=== PATIENT | female | born 1955 | race Caucasian/White ===

== ENCOUNTER → 2016-06-13 09:36 | Outpatient (CLI) | payer MEDICARE ==
[2013-01-27 19:50] VITALS: BMI 43.6
[~2016-06-13 09:36] MED LIST: ADALAT CC90 MG; BETAPACE 80 MG80 MG; FOLIC ACID1 MG PO; LEVOTHROID150 MCG PO; METHOTREXATE2.5 MG PO; MOTRIN600 MG PO; MULTIPLE VITAMI1 TA1 PO; PERCOCET 5/3251 TA1 PO; PRINIVIL20 MG PO; PROCARDIA XL60 MG PO; VITAMIN D5000 UNIT PO; VOLTAREN75 MG PO; XALATAN 0.0052.5 ML EACH EYE
== END ==
LOC: D.MRI 06-08 14:29
DX: M54.5 Low back pain (principal)

== ENCOUNTER 2016-07-27 14:36 | Emergency (ER) | payer MEDICARE ==
[2013-01-27 19:50] VITALS: BMI 43.6
[2016-07-27 15:56] LABS: APPEARANCE CLOUDY (CLEAR); BILIRUBIN NEGATIVE (NEGATIVE); COLOR YELLOW (YELLOW); GLUCOSE NEGATIVE (NEGATIVE); KETONE NEGATIVE (NEGATIVE); LEUKOCYTE ESTERASE 1+ (NEGATIVE); NITRITE NEGATIVE (NEGATIVE); PROTEIN NEGATIVE (NEGATIVE); SPECIFIC GRAVITY 1.015 (1.005-1.020); UROBILINOGEN NORMAL (NORMAL)
[2016-07-27 15:58] LABS: BACTERIA MANY /hpf (NONE SEEN); RED CELLS - URINE 0-5 /hpf (0-5); WHITE CELLS - URINE 25-50 /hpf (0-5)
[2016-07-27 16:27] LABS: HEMATOCRIT 36.8 % (36.0-48.0); MCH 31.2 pg (26.0-34.0); MCHC 32.6 g/dL (31.0-37.0); MCV 95.6 fL (80.0-100.0); MEAN PLATELET VOLUME 10.2 fL (7.4-10.4); PLATELET COUNT 285 10x3/uL (130-400); RBC 3.85 10x6/uL (4.00-5.40); RDW 16.2 % (11.5-14.5); WBC 22.7 10x3/uL (4.8-10.8)
[2016-07-27 16:44] LABS: ALBUMIN 3.3 g/dL (3.4-5.0); ALKALINE PHOSPHATASE 83 U/L (46-116); ALT (SGPT) 21 U/L (10-68); BILIRUBIN - TOTAL 0.75 mg/dL (0.2-1.3); CALC OSMOLALITY 278 mosm/kg (275-300); CALCIUM 8.6 mg/dL (8.5-10.1); CARBON DIOXIDE 26.5 mmol/L (21.0-32.0); CHLORIDE - SERUM 103 mmol/L (98-107); CREATININE - SERUM 0.7 mg/dL (0.6-1.3); GLUCOSE 123 mg/dL (74-106); POTASSIUM - SERUM 3.3 mmol/L (3.5-5.1); SODIUM 140 mmol/L (136-145); UREA NITROGEN 11 mg/dL (7-18); eGFR NON AFRICAN AMERICAN 90 mL/min (90-120)
[2016-07-27 16:45] LABS: BASOPHILS 1 % (0.0-2.0); LYMPHOCYTES 5 % (15-50); MONOCYTES 1 % (2-11); NEUTROPHILS 90 % (40-80); PLATELET ESTIMATE NORMAL
== END 2016-07-27 18:55 | disposition home or self-care (01) ==
LOC: D.ER 14:36
PROVIDERS: Physician Assistant Medical
DX: S93.402A Sprain of unspecified ligament of left ankle, initial encounter (principal); W01.0XXA Fall on same level from slipping, tripping and stumbling without subsequent striking against object, initial encounter; Y93.89 Activity, other specified; Y92.019 Unspecified place in single-family (private) house as the place of occurrence of the external cause; S80.02XA Contusion of left knee, initial encounter; S70.01XA Contusion of right hip, initial encounter; N39.0 Urinary tract infection, site not specified; I10 Essential (primary) hypertension; M06.9 Rheumatoid arthritis, unspecified

== ENCOUNTER → 2018-07-09 16:55 | Outpatient (CLI) | payer MEDICARE ==
[2013-01-27 19:50] VITALS: BMI 43.6
[2018-07-09 18:03] LABS: CALC OSMOLALITY 283 mosm/kg (275-300); CALCIUM 9.3 mg/dL (8.5-10.1); CARBON DIOXIDE 27.7 mmol/L (21.0-32.0); CHLORIDE - SERUM 104 mmol/L (98-107); CREATININE - SERUM 0.7 mg/dL (0.6-1.3); GLUCOSE 98 mg/dL (74-106); POTASSIUM - SERUM 4.4 mmol/L (3.5-5.1); SODIUM 141 mmol/L (136-145); UREA NITROGEN 21 mg/dL (7-18); eGFR NON AFRICAN AMERICAN 89 mL/min (90-120)
== END | disposition home or self-care (01) ==
LOC: D.LABREF 16:55
PROVIDERS: Nurse Practitioner
DX: I10 Essential (primary) hypertension (principal); I25.10 Atherosclerotic heart disease of native coronary artery without angina pectoris

== ENCOUNTER 2018-10-26 06:23 | Observation (INO) | payer MEDICARE ==
[~2018-10-26] VITALS: Ht 160 cm; Wt 118.9 kg
[2018-10-26] VITALS (7 sets, daily range): BP systolic 105–155; BP diastolic 61–92; Ht 160 cm; Wt 118.9 kg
--- NOTE | ~2018-10-26 | HEMODYNAMI ---
PATIENT:TORY ELIZABETH MEDICAL RECORD: [id number] : 53 LOCATION:[address] [id number] ADMISSION DATE: 10/26/18 Generatedon:10/27/201812:09 Patient name: TORY ELIZABETH Patient #: [id number] SSN: : 1955 Date of study: 10/27/2018 Page: Of Hemodynamic Procedure Report Patient Data Patient Demographics Procedure consent was obtained First Name: TORY Gender: Female Last Name: CLARA : 1955 [facility] Initial: YAMILEX Age: 63 year(s) Patient #: [id number] Race: Unknown Additional ID: [id number] Contact details Address: [address] [address] State: [place] City: [place] Zip code: [address] Past Medical History Allergies: No known allergies Admission Admission Data Admission Date: 10/26/2018 Admission Time: 7:47 Room #: D2130 Lab Results Lab Result Date: 10/27/2018 Lab Result Time: 0:00 Biochemistry Name Units Result Min Max BUN mg/dl 23 --(----)-* 7 18 Creatinine mg/dl 0.7 --(*---)-- 0.6 1.3 CBC Name Units Result Min Max Hematocrit % 33.8 *-(----)-- 42 54 Hemoglobin g/dl 11.2 *-(----)-- 13.5 17.5 Procedure Procedure Types Cath Procedure Diagnostic Procedure C C w/Coronaries Procedure Description Procedure Date Procedure Date: 10/27/2018 Procedure Start Time: 11:58 Procedure End Time: 12:08 Procedure Staff Name Function Asher Llamas MD Performing Physician Tyrone Agrawal RT Monitor Waylon Mccarty RN Nurse Kate Harrison RT Scrub Procedure Data Cath Procedure Fluoroscopy Diagnostic fluoroscopy Total fluoroscopy Time: 1.5 time: 1.5 min min Diagnostic fluoroscopy Total fluoroscopy dose: 565 dose: 565 mGy mGy Contrast Material Contrast Material Type Amount (ml) Isovue 300 54 Entry Location Entry Primary Successful Side Size Upsize Upsize Entry Closure Lau ccessful Closure Location (Fr) 1 (Fr) 2 (Fr) Remarks Device Remarks Radial Right 6 Fr Mechanical artery Short Compression Estimated blood loss: 5 ml Diagnostic catheters Device Type Used For End Catheter Placement DIAGNOSTIC [place] 110cm 5 Procedure Fr catheter ([id number]) DIAGNOSTIC Pigtail 5Fr Procedure catheter ([id number]) Procedure Complications No complications Procedure Medications Medication Administration Route Dosage 0.9% NaCl I.V. 100 ml/hr Oxygen etCO2 Nasal cannula 2 l/min Heparin Flush Bag added to field 2 bags (1000units/500ml NS) Lidocaine 2% added to field 20 Radial Cocktail added to field 1 syringe (Verapamil 2mg/Nitro 400mcg/Heparin 1500units) Versed I.V. Fentanyl I.V. 100 mcg Radial Cocktail I.A. 1 syringe (Verapamil 2mg/Nitro 400mcg/Heparin 1500units) Hemodynamics Rest HGB: 11.2 (g/dl) Heart Rate: 56 (bpm) Pressure Samples Time Site Value (mmHg) Purpose Heart Use Rate(bpm) 12:04 LV 170/15,22 EDP 33 Gradients Valve Time Site Site Mean SEP/DFP Peak To Heart Use 1 2 (mmHg) (sec/min) Peak Rate (mmHg) (bpm) Aortic 12:04 LV AO 58 Snapshots Pre Cath Intra NCS Post Cath Vital Signs Time Heart Resp SPO2 etCO2 NIBP (mmHg) Rhythm Pain Sedation Rate (ipm) (%) (mmHg) Status Level (bpm) 11:44:08 59 22 100 36.5 170/91(149) NSR 0 (11) 10(A) , No pain 11:48:28 55 16 100 38.7 152/83(134) NSR 0 (11) 10(A) , No pain 11:52:50 55 11 98 41 149/74(123) NSR 0 (11) 10(A) , No pain 11:56:52 56 18 95 40.3 118/71(107) NSR 0 (11) 10(A) , No pain 12:01:02 56 16 96 34.3 122/73(106) NSR 0 (11) 10(A) , No pain 12:05:12 61 11 96 40.2 139/75(113) NSR 0 (11) 10(A) , No pain Medications Time Medication Route Dose Verified Delivered Reason Notes Effectiveness by by 11:46:10 0.9% NaCl I.V. 100 Waylon Waylon Per ml/hr Bibiana Mccarty physician RN RN 11:46:47 Oxygen etCO2 2 l/min Waylon Waylon for low 02 Nasal Lorigan Lorigan sats cannula RN RN 11:46:59 Heparin Flush added 2 bags Waylon Waylon used for Bag to Lorigan Lorigan procedure (1000units/500ml field RN RN NS) 11:47:10 Lidocaine 2% added 20ml Waylon Waylon for local to vial Lorigan Lorigan anesthetic field RN RN 11:47:19 Radial Cocktail added 1 Waylon Waylon used for (Verapamil to syringe Lorigan Lorigan procedure 2mg/Nitro field CEBALLOS RN 400mcg/Heparin 1500units) 11:53:51 Versed I.V. Waylon Waylon for sedation Bibiana Mccarty RN, RN 11:53:59 Fentanyl I.V. 100 mcg Waylon Waylon for sedation Bibiana Mccarty RN, RN 11:59:35 Radial Cocktail I.A. 1 Waylon Asher for (Verapamil syringe Lorigan Muriel vasodilation 2mg/Nitro TUCKER SHAH 400mcg/Heparin 1500units) Procedure Log Time Note 11:25:55 Waylon Mccarty RN sent for patient. Start room use. 11:25:56 Time tracking: Regular hours (M-F 7:00 - 5:00) 11:26:00 Plan of Care:Hemodynamics will remain stable., Cardiac rhythm will remain stable., Comfort level will be maintained., Respiratory function will remain adequate., Patient/ family verbilizes understanding of procedure., Procedure tolerated without complication., Recovers from procedure without complications.. 11:34:27 Patient received from Med II to CCL 1 Alert and oriented. Tansferred to table in Supine position. 11:34:28 Warm blankets applied, and abdullahi hugger turned on for patient comfort. 11:34:29 Correct patient and procedure confirmed by team. 11:34:30 Signed procedure consent form obtained from patient. 11:34:31 ECG and BP/O2 sat monitors applied to patient. 11:34:32 Pre-procedure instructions explained to patient. 11:34:32 Pre-op teaching completed and patient verbalized understanding. 11:42:53 Vital chart was started 11:46:10 0.9% NaCl 100 ml/hr I.V. was administered by Waylon Mccarty RN; Per physician; 11:46:47 Baseline sample Acquired. 11:46:47 Oxygen 2 l/min etCO2 Nasal cannula was administered by Waylon Mccarty RN; for low 02 sats; 11:46:50 Rhythm: sinus rhythm 11:46:52 Full Disclosure recording started 11:46:58 H&P Date Dictated: 10/26/2018 Within 30 days and on chart.. 11:46:59 Heparin Flush Bag (1000units/500ml NS) 2 bags added to field was administered by Waylon Mccarty RN; used for procedure; 11:47:00 Family in patients room. 11:47:01 Patient NPO since Midnight. 11:47:07 Patient allergic to No known allergies 11:47:08 Is the patient allergic to Iodine/contrast media? No. 11:47:10 Lidocaine 2% 20ml vial added to field was administered by Waylon Mccarty RN; for local anesthetic; 11:47:19 Radial Cocktail (Verapamil 2mg/Nitro 400mcg/Heparin 1500units) 1 syringe added to field was administered by Waylon Mccarty RN; used for procedure; 11:51:27 Is patient on blood thinner?No 11:51:29 Patient diabetic? No. 11:51:31 Previous problem with sedation/anesthesia? No ? 11:51:33 Snore? Yes 11:51:34 Sleep apnea? Yes 11:51:35 Deviated septum? No 11:51:35 Opens mouth fully? Yes 11:51:36 Sticks out tongue? Yes 11:51:42 Dentures? Yes in 11:51:46 Pre procedure: right dorsailis pedis pulse 1+ Palpable, but thready & weak; easily obliterated 11:51:48 Modified Raj's test Ulnar < 7 seconds 11:51:50 Patient pain scale 0/10 ?. 11:51:53 IV patent on arrival in right antecubital with 0.9% NaCl at [facility]. 11:52:55 Lab Result : BUN 23 mg/dl 11::55 Lab Result : Hemoglobin 11.2 g/dl 11::55 Lab Result : Creatinine 0.7 mg/dl 11::55 Lab Result : Hematocrit 33.8 % 11:52:57 Lab results completed and on chart. 11:53:00 Right Radial & Right Groin area was prepped with chlora-prep and draped in sterile fashion 11:53:01 Alarms reviewed by R. N. 11:53:01 Sharps counted by scrub and verified by R.N. 11:53:03 Use device set Radial Dx or PCI 11:53:04 ACIST Syringe (79241) opened to sterile field. 11:53:04 Medline Cath Pack ([id number]) opened to sterile field. 11:53:05 Bag Decanter (2002S) opened to sterile field. 11:53:07 ACIST Hand Control (09795) opened to sterile field. 11:53:08 ACIST Manifold (15356) opened to sterile field. 11:53:08 Tegaderm 4 x 4 (1626W) opened to sterile field. 11:53:08 MBrace Wrist Support ([id number]) opened to sterile field. 11:53:10 SHEATH 6FR Slender (72-1060) opened to sterile field. 11:53:10 DIAGNOSTIC WIRE .035 260cm J wire (966160) opened to sterile field. 11:53:16 Physician arrived 11:53:16 --------ALL STOP TIME OUT------ 11:53:17 Final Timeout: patient, procedure, and site verified with staff and physician. All members of the team are in agreement. 11:53:18 Right Radial & Right Groin site verified by team. 11:53:20 Maximum allowable Isovue 300 dose 300ml. Physician notified. (300ml for normal creatinines. For patients with creatinine of 1.7 or higher multiply weight(kg) x 5 divided by creatinine.) 11:53:24 Fire Safety Assessment: A--An alcohol-based skin anteseptic being used preoperatively., C--Open oxygen or nitrous oxide is being used., D--An ESU, laser, or fiber-optic light is being used. 11:53:26 Physical assessment completed. ASA score P 2 - A patient with mild systemic disease as per Asher Llamas MD. 11:53:28 Sedation plan: IV Moderate Sedation Medication:Versed, Fentanyl 11:53:51 Versed I.V. was administered by Waylon Mccarty RN; for sedation; 11:53:59 Fentanyl 100 mcg I.V. was administered by Waylon Mccarty RN; for sedation; 11:57:49 Zero performed for pressure channel P1 11:57:53 Zero performed for pressure channel P1 11:57:57 Zero performed for pressure channel P1 11:57:59 Zero performed for pressure channel P1 11:58:06 Procedure started. 11:58:10 Local anesthetic to right radial artery with Lidocaine 2% by Asher Llamas MD.INITIAL ACCESS ONLY 11:58:19 A 6 Fr Short sheath was inserted into the Right Radial artery 11:59:35 Radial Cocktail (Verapamil 2mg/Nitro 400mcg/Heparin 1500units) 1 syringe I.A. was administered by Asher Llamas MD; for vasodilation; :59:59 A DIAGNOSTIC [place] 110cm 5 Fr catheter (449254) was advanced over the wire and used for Procedure. 12:00:18 LCA angiography performed. 12:01:19 RCA angiography performed. 12:02:30 Catheter exchanged over wire. 12:02:53 A DIAGNOSTIC Pigtail 5Fr catheter (134228Y) was advanced over the wire and used for Procedure. 12:04:12 LV gram done using MANZO 12:04:15 Injector settings: Ml/sec: 10, Volume: 20, 12:04:38 LV hemodynamics recorded. 12:04:42 EF : 55 % 12:04:43 Catheter removed. 12:04:52 TR BAND Standard (HRT27MSO) opened to sterile field. 12:04:58 Sheath removed intact; hemostasis achieved with Mechanical Compression to the Right Radial artery. 12:04:59 Procedure ended.(Physican Out) 12:06:54 Fluoroscopy time 01.50 minutes. 12:06:59 Fluoroscopy dose: 565 mGy 12:06:59 Flurop Dose total: 565 12:07:03 Contrast amount:Isovue 300 54ml. 12:07:05 Sharps counted by scrub and verified by R.N. 12:07:07 TR band inflated with 11cc of air. 12:07:09 Insertion/operative site no bleeding no hematoma. 12:07:18 Post right radial artery:stable, soft, clean and dry 12:07:19 Post Procedure Pulses reassessed and unchanged 12:07:21 Post-procedure physical assessment completed. ASA score P 2 - A patient with mild systemic disease as per Asher Llamas MD. 12:07:23 Post procedure rhythm: unchanged. 12:07:40 Estimated blood loss: 5 ml 12:07:41 Post procedure instruction explained to patient.Patient verbalizes understanding. 12:07:42 Patient needs reinforcement of post procedure teaching. 12:08:32 Procedure and supply charges have been captured, reviewed, submitted and are correct. 12:08:36 Procedure Complication : No complications 12:08:38 Vital chart was stopped 12:08:38 See physician's report for complete and final results. 12:08:40 Report given to PCU. 12:08:42 Patient transfered to PCU with Stretcher. 12:08:44 Procedure ended. 12:08:44 Full Disclosure recording stopped 12:08:49 End room use (Document Last) Device Usage Item Name Manufacture Quantity Catalog Hospital Part Current Minimal Lot# / Number Charge Number Stock Stock Serial# Code ACIST Acist 1 95383 309695 790062 514582 20 Syringe Medical (84324) Systems Inc Medline Medline 1 [id number] 879910 66917 227574 5 Cath Pack ([id number]) Bag Microtek 1 2001S 063095 91477 867338 5 Decanter Medical Inc. (2001S) ACIST Hand Acist 1 97289 078409 951159 140931 5 Control Medical (52678) Systems Inc ACIST Acist 1 67310 012454 775125 472977 5 Manifold Medical (68325) Systems Inc Tegaderm 4 3M 1 1626W 400473 536602 821299 5 x 4 (1626W) MBrace Advanced 1 140-0250-00 136226 86674 762660 5 Wrist Vascular Support Dynamics ([id number]) SHEATH 6FR Terumo 1 [id number] 535207 906582 493715 5 Slender (80-1060) DIAGNOSTIC [place] 1 240017 337223 247374 043608 30 WIRE .035 260cm J wire (038579) DIAGNOSTIC Terumo 1 40-7126 944839 989213 552429 5 [place] 110cm 5 Fr catheter (316228) DIAGNOSTIC Cardinal 1 [id number] 794789 581590 035879 5 Pigtail 5Fr Health catheter (589664Y) TR BAND Terumo 1 [id number] 372948 840290 521385 40 Standard ([id number]) Signature Audit [place] Stage Time Signature Unsigned Intra-Procedure 10/27/2018 Tyrone Agrawal 12:09:09 PM RT(R) Signatures Monitor : Tyrone Agrawal RT Signature : Date : Time : [address] [place] [address]
[2018-10-26] MEDS ORDERED: NORVASC10 MG PO (06:36)
[2018-10-26 07:06] LABS: BASOPHILS 0.4 % (0-2); EOSINOPHILS 0.6 % (0-7); HEMATOCRIT 36.8 % (36.0-48.0); HEMOGLOBIN 12.4 g/dL (12-16); IMMATURE GRANULOCYTES 0.4 % (0-5); LYMPHOCYTES 32.4 % (15-50); MCH 31.2 pg (26.0-34.0); MCHC 33.7 g/dL (31.0-37.0); MCV 92.7 fL (80.0-100.0); MEAN PLATELET VOLUME 9.5 fL (7.4-10.4); MONOCYTES 8.3 % (2-11); NEUTROPHILS 57.9 % (40-80); PLATELET COUNT 306 10x3/uL (130-400); RBC 3.97 10x6/uL (4.00-5.40); RDW 16.1 % (11.5-14.5); WBC 12.8 10x3/uL (4.8-10.8)
--- NOTE | 2018-10-26 07:14 | NUR ---
PT UP TO RESTROOM, BACK TO BED WITHOUT INCODENT. PLACE BACK ON HOME HEALTH NURSE LICENSED PRACTICAL. BLOOD PRESSURE 155/92.
[2018-10-26 07:22] LABS: ALBUMIN 3.4 g/dL (3.4-5.0); ALKALINE PHOSPHATASE 68 U/L (46-116); ALT (SGPT) 32 U/L (10-68); BILIRUBIN - TOTAL 0.25 mg/dL (0.2-1.3); CALC OSMOLALITY 286 mosm/kg (275-300); CALCIUM 9.3 mg/dL (8.5-10.1); CARBON DIOXIDE 27.5 mmol/L (21.0-32.0); CHLORIDE - SERUM 102 mmol/L (98-107); CREATININE - SERUM 0.8 mg/dL (0.6-1.3); GLUCOSE 132 mg/dL (74-106); POTASSIUM - SERUM 3.7 mmol/L (3.5-5.1); PROTEIN - SERUM 7.8 g/dL (6.4-8.2); SODIUM 139 mmol/L (136-145); UREA NITROGEN 32 mg/dL (7-18); eGFR NON AFRICAN AMERICAN 76 mL/min (90-120)
[2018-10-26 07:31] LABS: CREATINE KINASE 93 UL (21-215); MAGNESIUM - SERUM 1.5 mg/dL (1.8-2.4); PRO BNP 997 pg/mL (0-125); TROPONIN-I 0.024 ng/mL (0.000-0.060)
--- NOTE | 2018-10-26 08:45 | NUR ---
NEW PATIENT ADMIT FROM ER. PATIENT TO ROOM VIA WC AND ER PERSONNEL. PATIENT CHANGED INTO HOSPITAL GOWN AND LAYING IN BED. TELEMETRY PLACED. ADMISSION HISTORY AND ASSESSMENT COMPLETED. PATIENT IS STABLE AND VSS. DENIES ANY NEEDS OR PAIN. ORIENTED TO ROOM AND CALL LIGHT. WILL CONTINUE WITH PLAN OF CARE. SR UP X 2 BED IN LOW POSITION AND CALL LIGHT IN REACH.
[2018-10-26 12:20] LABS: CKMB 2.2 U/L (0.0-3.6); CREATINE KINASE 85 UL (21-215); TROPONIN-I 0.039 ng/mL (0.000-0.060)
[2018-10-26 14:34] LABS: APPEARANCE CLEAR (CLEAR); BILIRUBIN NEGATIVE (NEGATIVE); COLOR STRAW (YELLOW); GLUCOSE NEGATIVE (NEGATIVE); KETONE NEGATIVE (NEGATIVE); NITRITE NEGATIVE (NEGATIVE); PROTEIN NEGATIVE (NEGATIVE); SPECIFIC GRAVITY 1.005 (1.005-1.020); UROBILINOGEN NORMAL (NORMAL)
--- NOTE | 2018-10-26 16:21 | NUR ---
PATIENT LAYING IN BED ON RT SIDE WITH EYES CLOSED AND BREATHING EVENLY. WILL CONTINUE TO MONITOR.
--- NOTE | 2018-10-26 19:25 | NUR ---
RECEIVED REPORT, WILL ASSUME CARE OF PT, SITTING UP ON SIDE OF, DENIES ANY NEEDS, CALL LIGHT IN REACH, WILL CONTINUE PLAN OF CARE
[2018-10-26 19:52] LABS: CREATINE KINASE 82 UL (21-215); TROPONIN-I 0.017 ng/mL (0.000-0.060)
[2018-10-27 00:35] VITALS: BP 107/56
--- NOTE | 2018-10-27 00:44 | NUR ---
I have reviewed this patient and I concur with the Shift Assessment completed by the Licensed Practical Nurse today this shift.
--- NOTE | 2018-10-27 02:00 | NUR ---
FIRE MANAGEMENT OFFICER INFORMED ME THAT PT CONVERTED TO SB-57
[2018-10-27 03:53] VITALS: BP 129/65
[2018-10-27 08:00] VITALS: BP 144/70
--- NOTE | 2018-10-27 08:00 | NUR ---
PT RESTING IN BED. SHIFT ASSESSMENT PERFORMED. AM MEDICATIONS GIVEN ORDERED. DENIES ANY PAIN AT THIS TIME. CALL LIGHT WITHIN REACH. WILL CONT TO FOLLOW POC
[2018-10-27 08:08] LABS: BASOPHILS 0.3 % (0-2); EOSINOPHILS 2.3 % (0-7); HEMATOCRIT 33.8 % (36.0-48.0); HEMOGLOBIN 11.2 g/dL (12-16); IMMATURE GRANULOCYTES 0.2 % (0-5); LYMPHOCYTES 24.6 % (15-50); MCH 30.9 pg (26.0-34.0); MCHC 33.1 g/dL (31.0-37.0); MCV 93.1 fL (80.0-100.0); MEAN PLATELET VOLUME 9.6 fL (7.4-10.4); MONOCYTES 6.4 % (2-11); NEUTROPHILS 66.2 % (40-80); PLATELET COUNT 298 10x3/uL (130-400); RBC 3.63 10x6/uL (4.00-5.40); RDW 16.2 % (11.5-14.5); WBC 10.7 10x3/uL (4.8-10.8)
[2018-10-27 08:21] LABS: CALC OSMOLALITY 282 mosm/kg (275-300); CALCIUM 8.7 mg/dL (8.5-10.1); CARBON DIOXIDE 27.5 mmol/L (21.0-32.0); CHLORIDE - SERUM 104 mmol/L (98-107); CREATININE - SERUM 0.7 mg/dL (0.6-1.3); GLUCOSE 104 mg/dL (74-106); POTASSIUM - SERUM 3.9 mmol/L (3.5-5.1); SODIUM 140 mmol/L (136-145); eGFR NON AFRICAN AMERICAN 89 mL/min (90-120)
[2018-10-27 08:26] LABS: UREA NITROGEN 23 mg/dL (7-18)
--- NOTE | 2018-10-27 08:40 | NUR ---
GIS INSTRUCTOR AND BLOOD CONSENTS SIGNED WITH WITNESS NURSE, ALL QUESTIONS ANSWERED.
--- NOTE | 2018-10-27 09:25 | NUR ---
EMBOSSING PRESS OPERATOR CALLED TO PREOP PT. PT PREOP ORDERED
--- NOTE | 2018-10-27 11:32 | NUR ---
PT LEFT FLOOR FOR HEART CATH
--- NOTE | 2018-10-27 12:28 | NUR ---
PT RETURNED FROM IMPLEMENTATION COORDINATOR, VSS AND WNL. TR BAND IN PLACE TO RIGHT WRIST. DENIES ANY NEEDS AT THIS TIME, WILL CONT TO FOLLOW POC
--- NOTE | 2018-10-27 12:45 | NUR ---
PT RESTING IN BED, VSS AND WNL. TR BAND NOTED TO RIGHT WRIST. DENIES ANY NEEDS AT THIS TIME, WILL CONT TO FOLLOW POC
--- NOTE | 2018-10-27 12:54 | NUR ---
PT RESTING IN BED, VSS AND WNL. TR BAND IN PLACE TO RIGHT WRIST. DENIES ANY NEEDS AT THIS TIME
--- NOTE | 2018-10-27 13:45 | NUR ---
VSS AND WNL. DENIES NEEDS AT THIS TIME. TR BAND IN PLACE TO RIGHT WRIST. WILL CONT TO FOLLOW POC
--- NOTE | 2018-10-27 14:15 | NUR ---
VSS AND WNL, DENIES ANY NEEDS AT THIS TIME, TR BAND IN PLACE TO PT RIGHT WRIST. WILL CONT TO FOLLOW POC
[2018-10-27] MEDS ORDERED: ASPIRIN81 MG PO (14:36)
[2018-10-27] MEDS ORDERED: ISOSORBIDE MONO30 M1 PO (14:38)
--- NOTE | 2018-10-27 14:45 | NUR ---
ATTEMPTED TO REMOVE HALF THE AIR IN TR BAND. BLEEDING OCCURED. REPLACED AIR BACK IN TR BAND
--- NOTE | 2018-10-27 15:08 | NUR ---
REMOVED 5CC OF AIR FROM TR BAND. NO BLEEDING NOTED AT THIS TIME, WILL CONT TO FOLLOW POC
--- NOTE | 2018-10-27 16:57 | NUR ---
DISCHARGE INSTRUCTIONS REVIEWED WITH PT AND ALL QUESTIONS ANSWERED, TELELMETRY REMOVED AND GIVEN TO CLINICAL PROGRAM CONSULTANT. PIV REMOVED WITH CATHETER TIP INTACT. ASSISTED PT TO FRONT OF HOSPITAL VIA WHEELCHAIR. PT LEFT WITH FRIEND
--- NOTE | 2018-10-28 09:31 | MORECARE ---
CASE MANAGEMENT DISCHARGE SUMMARY PATIENT: TORY ELIZABETH YAMILEX UNIT: [id number] ADM DATE: 10/26/18 AGE: 63 : [birth year] SEX: F ROOM/BED: D.2130 AUTHOR: ELZBIETA CROCKER PHYSICIAN: REFERRING PHYSICIAN: HAIM WEAVER MD DATE OF SERVICE: 10/28/18 Discharge Plan Patient Name: TORY ELIZABETH Facility: [facility]:[place] : 1955 Planned Disposition: Home Anticipated Discharge Date: 10/27/18 Discharge Date: 10/27/2018 Expected LOS: 1 Initial Reviewer: [id number] Initial Review Date: 10/28/2018 Generated: 10/28/18 10:31 am Patient Name: TORY ELIZABETH Page 24005 at 0931 All edits/amendments must be made on the electronic document DICTATION DATE: 10/28/18929 CASHIER GAMBLING: DM 10/28/18929 RPT#: [id number] DC DATE:10/27/18 STATUS: DIS IN [facility] [address] [place] [address] END OF REPORT
--- NOTE | 2018-10-28 10:07 | CN ---
PATIENT NAME:TORY ELIZABETH MEDICAL RECORD: [id number] : 53 LOCATION:D.Zane D.2130 ADMIT DATE: 10/26/18 ACCOUNT: [id number] CONSULTING PHYSICIAN: BRADLEY ZEE MD REFERRING PHYSICIAN: HAIM WEAVER MD DATE OF CONSULTATION: 10/26/2018 HISTORY OF PRESENT ILLNESS: A 63-year-old female with known history of coronary artery disease, status post intervention to the right in the past, history of atrial fibrillation, actually doing better the last week, she was started on a Dosepak for rheumatoid arthritis, had acute onset of breathlessness, chest tightness and pressure, found to be in AFib with RVR. Secondary ST-T changes. She has noticed some breathlessness since trying to do more over the past week. We are asked to see her concerning her cardiovascular status. PAST MEDICAL HISTORY: Includes: 1. History of arthritis. 2. Hypertension. 3. Hyperlipidemia. 4. Atrial fibrillation. 5. Hypothyroidism, on replacement. MEDICATIONS: Include Synthroid 150 mcg every day, Voltaren 75 b.i.d., sotalol 120 b.i.d., lisinopril 20 b.i.d., felodipine 10 every day, methotrexate 15 mg weekly. ALLERGIES: None known. SOCIAL HISTORY: Nonsmoker, nondrinker. Does try to do PT on a regular basis. REVIEW OF SYSTEMS: The patient reports easy bruising but reports no swollen glands. The patient reports no fever, no night sweats, no significant weight gain, no significant weight loss. No significant exercise tolerance. The patient reports no dry eyes, no irritation, no vision change. Patient reports no difficulty hearing and no ear pain. Patient reports no frequent nose bleeds or nose and sinus problems. Patient reports on arm pain on exertion. No shortness of breath while lying down. No history of heart murmur. Patient reports no cough, no wheezing or coughing up blood. Patient reports no abdominal pain, no vomiting. Normal appetite. No diarrhea and not vomiting blood. No nausea and no constipation. Patient reports no incontinence. No difficulty urinating. No hematuria. No increased frequency. Patient reports no muscle aches. No weakness, no arthralgias, no back pain. No swelling of the extremities. Patient reports no abnormal mole, no jaundice, no rashes. Reports no loss of consciousness. No weakness and no numbness. No seizures, dizziness, or headaches. The patient reports no depression, no sleep disturbance, feeling safe in a relationship and no alcohol abuse. Patient reports on fatigue. Reports no runny nose or sinus pressure. No itching, no hives, and no frequent sneezing. PHYSICAL EXAMINATION: GENERAL: Pleasant female in no acute distress, appears stated age. VITAL SIGNS: Blood pressure 116/61, pulse 82 at this point, still regular. HEENT: Normocephalic, atraumatic. NECK: No bruits noted. HEART: Irregular, II/ systolic ejection murmur, questionable S3 gallop. CONSULT REPORT [id number] TORY ELIZABETH LUNGS: Fair air excursion. ABDOMEN: Soft, nontender. EXTREMITIES: Pulses 2+ with 1+ edema. DIAGNOSTIC DATA: ECG shows atrial fibrillation with RVR, ST-T segment changes inferolaterally. IMPRESSION: Atrial fibrillation, acute coronary syndrome. Plan for rate control. Hopefully, cardiovert with IV diltiazem. Plan for angiography. Further recommendations based on above. TRANSINT:[id number] Voice Confirmation ID: [id number] DOCUMENT ID: [id number] BRADLEY ZEE MD at 1007 CC: [id number] DICTATION DATE: 10/26/18 1102 AIRCRAFT SHIPPING CHECKER: 10/26/18 1350 DIS IN 10/27/18 [facility] [address] [place] [address]
--- NOTE | 2018-10-28 10:07 | EC ---
PATIENT:TORY ELIZABETH DATE OF SERVICE: 10/26/18 SEX: F MEDICAL RECORD: [id number] DATE OF : 53 LOCATION:D.M2 D.213 AGE OF PATIENT: 63 ADMISSION DATE: 10/26/18 REFERRING PHYSICIAN: INTERPRETING PHYSICIAN: BRADLEY ZEE MD ECHOCARDIOGRAM REPORT ECHO CHARGES 4 ECHO COMPLETE Date: 10/26/18 CLINICAL DIAGNOSIS: AFIB ECHOCARDIOGRAPHIC MEASUREMENTS (adult normal given) AC root (d.<3.7cm) 3.3 cm LV Septum d (<1.2 cm> 1.4 cm Valve Excursion 1.3 cm LV Septum (systole) 1.7 cm Left Atria (s.<4.0cm> 3.6 cm LVPW d(<1.2cm) 1.7 cm RV (d.<2.3cm) 4.2 cm LVPW (sytole) 1.9 cm LV diastole(<5.6CM) 5.4 cm MV E-F(>70mm/sec) cm LV systole 3.8 cm LVOT Diameter 1.7 cm MV exc.(>10mm) 1.5 cm Est.ejection fraction (50-75%) % DOPPLER: LVIT cm/sec A cm/sec E cm/sec LA cm/sec RVSP 34 mmHg LVOT 140 cm/sec AOP1/2T m/s Asc. Ao 234 cm/sec RVOT 94 cm/sec RA cm/sec PA 120 cm/sec AV Gradient Peak 21.84mmHg AV Mean 13.26mmHg AV Area 1.4 cm MV Gradient Peak 6.63 mmHg MV Mean 2.41 mmHg MV Area cm COMMENTS: [employer] [employer] Custodian: 2 [employer] Administrator: 3 Dr. Glover TAPE# PACS Pericardial Effusion N DATE OF SERVICE: Adequate 2-D echo, color-flow and spectral Doppler, and M-mode. LVH is present. LV internal dimensions are normal. Difficult to fully assess focal wall motion secondary to underlying atrial fibrillation and variable R-R intervals. Overall LV function appears to be at least lower limits of normal at 50%. Aortic valve sclerosis with mildly elevated velocity of 21 mmHg, putting this in mild range. Left atrium is normal. Mitral valve shows no prolapse. Moderate MR. Right-sided chambers are grossly normal. Mild TR by color-flow ECHOCARDIOGRAM REPORT [id number] TORY ELIZABETH imaging. TRANSINT:[id number] Voice Confirmation ID: [id number] DOCUMENT ID: [id number] BRADLEY ZEE MD at 1007 CC: [id number] DICTATION DATE: 10/27/18 1005 WOOD SCRAP HANDLER: 10/27/18 1705 DIS IN 10/27/18 [place] [id number] [place] [id number]
--- NOTE | 2018-10-28 10:07 | OP ---
PATIENT NAME: TORY ELIZABETH MEDICAL RECORD: [id number] :53 LOCATION:D.M2 D.2130 ADMISSION DATE:10/26/18 SURGEON: BRADLEY ZEE MD DATE OF OPERATION: 10/27/2018 PROCEDURES: Left heart catheterization, selective coronary angiography, right radial approach. CATHETERS: Radial sheath, Linden catheter, pigtail catheter. The procedure was well tolerated. The patient was returned to the law. Sheath was removed. TR band was placed. FINDINGS: Left ventriculography in 30-degree MANZO view: Normal wall motion and normal systolic function. CORONARY ANATOMY: LEFT MAIN: Left main is free of disease. LAD: It has minimal luminal plaquing. No evidence of obstructive coronary artery disease. CIRCUMFLEX: The distal circumflex has a lesion, not amenable to transcatheter revascularization. RIGHT CORONARY ARTERY: Area of previous stenting is widely patent. Otherwise, no evidence of progression of disease. IMPRESSION: Angina secondary to atrial fibrillation, currently in sinus rhythm. Medical management. TRANSINT:[id number] Voice Confirmation ID: [id number] DOCUMENT ID: [id number] BRADLEY ZEE MD at 1007 CC: [id number] DICTATION DATE: 10/27/18 1209 BEDSPREAD CUTTER HAND: 10/27/18 1841 DIS IN 10/27/18 [facility] [address] [place] [address]
== END 2018-10-27 16:59 | disposition home or self-care (01) ==
LOC: D.ER 06:23 → OBSVTIME 07:47 → D.M2 07:47
PROVIDERS: Emergency Medicine; ADMIT Emergency Medicine; ATTEND Emergency Medicine
DX: I48.91 Unspecified atrial fibrillation (principal); I11.0 Hypertensive heart disease with heart failure; E78.5 Hyperlipidemia, unspecified; I25.119 Atherosclerotic heart disease of native coronary artery with unspecified angina pectoris; E03.9 Hypothyroidism, unspecified; I24.9 Acute ischemic heart disease, unspecified; I50.9 Heart failure, unspecified

== ENCOUNTER 2019-01-16 09:33 | Emergency (ER) | payer MEDICARE ==
[~2019-01-16] VITALS: Ht 157.5 cm; Wt 118.2 kg
[~2019-01-16 09:33] MED LIST changes: +ASPIRIN81 MG PO; +ISOSORBIDE MONO30 M1 PO; -LEVOTHROID150 MCG PO; +NORVASC10 MG PO; +TIROSINT100 MCG PO
[2019-01-16 09:50] VITALS: Ht 157.5 cm; Wt 118.2 kg
[2019-01-16 10:20] LABS: BASOPHILS 0.5 % (0-2); EOSINOPHILS 2.3 % (0-7); HEMATOCRIT 35.7 % (36.0-48.0); HEMOGLOBIN 12.1 g/dL (12-16); IMMATURE GRANULOCYTES 0.3 % (0-5); LYMPHOCYTES 15.5 % (15-50); MCH 32.1 pg (26.0-34.0); MCHC 33.9 g/dL (31.0-37.0); MCV 94.7 fL (80.0-100.0); MEAN PLATELET VOLUME 9.3 fL (7.4-10.4); MONOCYTES 5.3 % (2-11); NEUTROPHILS 76.1 % (40-80); PLATELET COUNT 344 10x3/uL (130-400); RBC 3.77 10x6/uL (4.00-5.40); RDW 14.7 % (11.5-14.5); WBC 11.9 10x3/uL (4.8-10.8)
[2019-01-16 10:32] LABS: APPEARANCE CLEAR (CLEAR); BILIRUBIN NEGATIVE (NEGATIVE); COLOR YELLOW (YELLOW); GLUCOSE NEGATIVE (NEGATIVE); KETONE NEGATIVE (NEGATIVE); NITRITE NEGATIVE (NEGATIVE); PROTEIN NEGATIVE (NEGATIVE); SPECIFIC GRAVITY 1.005 (1.005-1.020); UROBILINOGEN NORMAL (NORMAL)
[2019-01-16 10:32] LABS: ALBUMIN 3.5 g/dL (3.4-5.0); ALKALINE PHOSPHATASE 64 U/L (46-116); ALT (SGPT) 16 U/L (10-68); BILIRUBIN - TOTAL 0.35 mg/dL (0.2-1.3); CALC OSMOLALITY 276 mosm/kg (275-300); CALCIUM 9.7 mg/dL (8.5-10.1); CARBON DIOXIDE 27.9 mmol/L (21.0-32.0); CHLORIDE - SERUM 101 mmol/L (98-107); CREATININE - SERUM 0.7 mg/dL (0.6-1.3); GLUCOSE 136 mg/dL (74-106); POTASSIUM - SERUM 4.2 mmol/L (3.5-5.1); PROTEIN - SERUM 7.9 g/dL (6.4-8.2); SODIUM 137 mmol/L (136-145); UREA NITROGEN 14 mg/dL (7-18); eGFR NON AFRICAN AMERICAN 89 mL/min (90-120)
[2019-01-16 10:37] LABS: AMYLASE - SERUM 39 U/L (25-115); LIPASE 151 U/L (73-393)
[2019-01-16 10:39] LABS: BACTERIA FEW /hpf (NONE SEEN); EPITHELIAL CELLS 0-5 /hpf (0-5); MUCUS <1+ /lpf (NONE SEEN); WHITE CELLS - URINE OCC /hpf (0-5)
[2019-01-16 10:41] LABS: TROPONIN-I < 0.017 ng/mL (0.000-0.060)
[2019-01-16] MEDS ORDERED: MIRALAX17 GM PO (12:01)
[2019-01-16 12:16] VITALS: BP 146/73
== END 2019-01-16 12:32 | disposition home or self-care (01) ==
LOC: D.ER 09:33
PROVIDERS: Family Medicine
DX: K59.00 Constipation, unspecified (principal); I11.0 Hypertensive heart disease with heart failure; I50.9 Heart failure, unspecified

== ENCOUNTER 2019-03-10 11:29 | Emergency (ER) | payer MEDICARE ==
[~2019-03-10] VITALS: Ht 157.5 cm; Wt 104.5 kg
[~2019-03-10 11:29] MED LIST changes: +MIRALAX17 GM PO
[2019-03-10 11:32] VITALS: Ht 157.5 cm; Wt 104.5 kg
[2019-03-10 11:41] LABS: BASOPHILS 0.4 % (0-2); EOSINOPHILS 1.9 % (0-7); HEMATOCRIT 38.9 % (36.0-48.0); IMMATURE GRANULOCYTES 0.2 % (0-5); LYMPHOCYTES 17.2 % (15-50); MCH 32.3 pg (26.0-34.0); MCHC 33.4 g/dL (31.0-37.0); MCV 96.8 fL (80.0-100.0); MEAN PLATELET VOLUME 9.6 fL (7.4-10.4); MONOCYTES 3.4 % (2-11); NEUTROPHILS 76.9 % (40-80); PLATELET COUNT 295 10x3/uL (130-400); RBC 4.02 10x6/uL (4.00-5.40); RDW 14.7 % (11.5-14.5)
[2019-03-10 11:56] LABS: ALBUMIN 3.5 g/dL (3.4-5.0); ALKALINE PHOSPHATASE 66 U/L (46-116); ALT (SGPT) 23 U/L (10-68); APTT 29.7 SECONDS (22.8-39.4); BILIRUBIN - TOTAL 0.52 mg/dL (0.2-1.3); CALC OSMOLALITY 283 mosm/kg (275-300); CALCIUM 10.1 mg/dL (8.5-10.1); CARBON DIOXIDE 24.6 mmol/L (21.0-32.0); CHLORIDE - SERUM 105 mmol/L (98-107); CREATININE - SERUM 0.8 mg/dL (0.6-1.3); GLUCOSE 131 mg/dL (74-106); INR 1.04 (0.85-1.17); POTASSIUM - SERUM 4.6 mmol/L (3.5-5.1); PROTIME 13.1 SECONDS (11.6-15.0); SODIUM 139 mmol/L (136-145); UREA NITROGEN 24 mg/dL (7-18); eGFR NON AFRICAN AMERICAN 76 mL/min (90-120)
[2019-03-10 12:07] LABS: CKMB 0.9 U/L (0.0-3.6); CREATINE KINASE 62 UL (21-215); MAGNESIUM - SERUM 1.6 mg/dL (1.8-2.4); TROPONIN-I 0.023 ng/mL (0.000-0.060)
[2019-03-10 14:42] VITALS: BP 133/79
[2019-03-10] MEDS ORDERED: ZANAFLEX4 MG PO (22:37)
== END 2019-03-10 14:35 | disposition home or self-care (01) ==
LOC: D.ER 11:29
PROVIDERS: Family Medicine
DX: I48.91 Unspecified atrial fibrillation (principal); I11.0 Hypertensive heart disease with heart failure; I50.9 Heart failure, unspecified

== ENCOUNTER 2019-03-10 18:42 | Inpatient (IN) | payer MEDICARE ==
[~2019-03-10] VITALS: Ht 157.5 cm; Wt 110.0 kg
[2019-03-10 19:22] LABS: BASOPHILS 0.5 % (0-2); EOSINOPHILS 1.3 % (0-7); HEMATOCRIT 39.2 % (36.0-48.0); HEMOGLOBIN 13.1 g/dL (12-16); IMMATURE GRANULOCYTES 0.1 % (0-5); LYMPHOCYTES 25.4 % (15-50); MCH 32.2 pg (26.0-34.0); MCHC 33.4 g/dL (31.0-37.0); MCV 96.3 fL (80.0-100.0); MEAN PLATELET VOLUME 9.8 fL (7.4-10.4); MONOCYTES 3.1 % (2-11); NEUTROPHILS 69.6 % (40-80); PLATELET COUNT 265 10x3/uL (130-400); RBC 4.07 10x6/uL (4.00-5.40); RDW 14.7 % (11.5-14.5); WBC 9.2 10x3/uL (4.8-10.8)
[2019-03-10 19:30] LABS: INR 1.07 (0.85-1.17); PROTIME 13.4 SECONDS (11.6-15.0)
[2019-03-10 19:31] LABS: APTT 28.8 SECONDS (22.8-39.4)
[2019-03-10 19:39] VITALS: BP 135/87
[2019-03-10 19:41] LABS: ALBUMIN 3.6 g/dL (3.4-5.0); ALKALINE PHOSPHATASE 67 U/L (46-116); ALT (SGPT) 25 U/L (10-68); BILIRUBIN - TOTAL 0.53 mg/dL (0.2-1.3); CALC OSMOLALITY 289 mosm/kg (275-300); CALCIUM 9.9 mg/dL (8.5-10.1); CARBON DIOXIDE 26.5 mmol/L (21.0-32.0); CHLORIDE - SERUM 105 mmol/L (98-107); GLUCOSE 145 mg/dL (74-106); POTASSIUM - SERUM 4.3 mmol/L (3.5-5.1); PROTEIN - SERUM 8.1 g/dL (6.4-8.2); SODIUM 141 mmol/L (136-145); UREA NITROGEN 30 mg/dL (7-18); eGFR NON AFRICAN AMERICAN 59 mL/min (90-120)
--- NOTE | 2019-03-10 20:09 | NUR ---
PT AMBULATED TO RESTROOM.
[2019-03-10 20:10] LABS: CKMB 1.7 U/L (0.0-3.6); CREATINE KINASE 65 UL (21-215); MAGNESIUM - SERUM 1.6 mg/dL (1.8-2.4); TROPONIN-I 0.032 ng/mL (0.000-0.060)
--- NOTE | 2019-03-10 21:46 | NUR ---
RECIEVED TO ROOM 2119 FROM ER VIA W.C. PT A&O. RESPERTIONS EVEN ON RA. IV TO RIGHT HAND WITH NS INFUSING AT 75 CC/HR. IV SITE CLEAN AND DRY. VITALS STABLE. PLACED ON TELEMETRY, 86 CONTROLLED A FIB. HISTORY AND MED REC COMPLETE. PT DENIES PAIN OR NEEDS, BED LOW, CL IN REACH.
[2019-03-10] MEDS ORDERED: ZANAFLEX4 MG PO (22:37)
[2019-03-11 00:16] VITALS: Ht 157.5 cm; Wt 110.0 kg
[2019-03-11 00:20] VITALS: BP 155/85
[2019-03-11 02:08] LABS: CKMB 2.9 U/L (0.0-3.6); TROPONIN-I 0.034 ng/mL (0.000-0.060)
[2019-03-11 02:09] LABS: CREATINE KINASE 240 UL (21-215)
--- NOTE | 2019-03-11 04:02 | NUR ---
RESTING WITH EYES CLOSED, RESPERATIONS EVEN, NO S/S DISTRESS NOTED.
[2019-03-11 04:13] VITALS: BP 110/75
[2019-03-11 07:19] LABS: BASOPHILS 0.5 % (0-2); EOSINOPHILS 0.9 % (0-7); HEMATOCRIT 36.7 % (36.0-48.0); HEMOGLOBIN 11.9 g/dL (12-16); IMMATURE GRANULOCYTES 0.2 % (0-5); LYMPHOCYTES 23.7 % (15-50); MCH 31.6 pg (26.0-34.0); MCHC 32.4 g/dL (31.0-37.0); MCV 97.3 fL (80.0-100.0); MEAN PLATELET VOLUME 9.8 fL (7.4-10.4); MONOCYTES 2.9 % (2-11); NEUTROPHILS 71.8 % (40-80); PLATELET COUNT 290 10x3/uL (130-400); RBC 3.77 10x6/uL (4.00-5.40); WBC 8.7 10x3/uL (4.8-10.8)
[2019-03-11 07:40] LABS: ALBUMIN 3.4 g/dL (3.4-5.0); ALKALINE PHOSPHATASE 63 U/L (46-116); ALT (SGPT) 22 U/L (10-68); BILIRUBIN - TOTAL 0.47 mg/dL (0.2-1.3); CALC OSMOLALITY 289 mosm/kg (275-300); CALCIUM 9.7 mg/dL (8.5-10.1); CARBON DIOXIDE 23.7 mmol/L (21.0-32.0); CHLORIDE - SERUM 105 mmol/L (98-107); CKMB 1.6 U/L (0.0-3.6); CREATINE KINASE 67 UL (21-215); CREATININE - SERUM 0.8 mg/dL (0.6-1.3); GLUCOSE 131 mg/dL (74-106); MAGNESIUM - SERUM 1.5 mg/dL (1.8-2.4); PHOSPHOROUS 5.5 mg/dL (2.5-4.9); POTASSIUM - SERUM 4.6 mmol/L (3.5-5.1); PRO BNP 5501 pg/mL (0-125); PROTEIN - SERUM 7.1 g/dL (6.4-8.2); SODIUM 141 mmol/L (136-145); THYROID STIMULATING HORMONE 0.06 uIU/mL (0.36-3.74); UREA NITROGEN 32 mg/dL (7-18); eGFR NON AFRICAN AMERICAN 76 mL/min (90-120)
--- NOTE | 2019-03-11 07:50 | NUR ---
CARDIZEM DRIP STARTED AT THIS TIME. PT A/O X4, RESP EVEN AND NONLABORED ON RA. DENIES ANY PAIN OR NEEDS AT THIS TIME. CALL LIGHT IN REACH, BEDSIDE RAILS X2, NAD NOTED, WILL CONTINUE TO MONITOR.
[2019-03-11 09:12] VITALS: BP 110/67
--- NOTE | 2019-03-11 11:40 | NUR ---
PAGED DR. HERNANDEZ, WAITING TELEPHOTO INSTALLER BACK.
[2019-03-11 12:46] VITALS: BP 111/67
--- NOTE | 2019-03-11 16:40 | NUR ---
RT HAND IV INFILTRATED, D/C IV WITH CATHETER TIP INTACT. NEW 22G STARTED TO LT WRIST X2 STICKS. CARDIZEM DRIP STARTED BACK. PT DENIES ANY NEEDS AT THIS TIME. CALL LIGHT IN REACH, BEDSIDE RAILS X1, NAD NOTED.
[2019-03-11 17:16] VITALS: BP 106/50
--- NOTE | 2019-03-11 19:47 | NUR ---
RECEIVED PATIENT CARE. PATIENT IS ALERT AND ORIENTED, RESTING COMFORTABLY IN BED. RESPIRATIONS ARE EVEN AND UNLABORED. NEEDS MET AT THIS TIME. NO S/S OF DISTRESS. NO C/O PAIN. CALL LIGHT WITHIN REACH. WILL CPOC.
[2019-03-11 20:00] VITALS: BP 120/50
[2019-03-12] VITALS: BP 119/44
[2019-03-12 04:00] VITALS: BP 110/54
[2019-03-12 05:21] LABS: BASOPHILS 0.7 % (0-2); HEMATOCRIT 34.6 % (36.0-48.0); HEMOGLOBIN 11.3 g/dL (12-16); IMMATURE GRANULOCYTES 0.1 % (0-5); LYMPHOCYTES 36.7 % (15-50); MCH 31.7 pg (26.0-34.0); MCHC 32.7 g/dL (31.0-37.0); MCV 96.9 fL (80.0-100.0); MEAN PLATELET VOLUME 9.9 fL (7.4-10.4); NEUTROPHILS 54.5 % (40-80); PLATELET COUNT 277 10x3/uL (130-400); RBC 3.57 10x6/uL (4.00-5.40); WBC 8.1 10x3/uL (4.8-10.8)
[2019-03-12 05:39] LABS: ANION GAP 15.5 mmol/L (8-16); CALCIUM 8.4 mg/dL (8.5-10.1); CARBON DIOXIDE 23.4 mmol/L (21.0-32.0); CREATININE - SERUM 0.9 mg/dL (0.6-1.3); MAGNESIUM - SERUM 1.5 mg/dL (1.8-2.4)
[2019-03-12 05:49] LABS: PHOSPHOROUS 3.3 mg/dL (2.5-4.9); POTASSIUM - SERUM 3.9 mmol/L (3.5-5.1)
[2019-03-12 08:00] VITALS: BP 115/59
--- NOTE | 2019-03-12 11:48 | NUR ---
PT'S IV KEEP BEEPING SAYING OCCULTED. IV PATENT. NEW 22G IV STARTED TO RT FA X1 STICK. PT TOLERATED WELL. PT UP TO CHAIR, DENIES ANY OTHER NEEDS AT THIS TIME. CALL LIGHT IN REACH, NAD NOTED,WILL CONTINUE TO MONITOR.
[2019-03-12 13:59] VITALS: BP 113/78
[2019-03-12 17:19] VITALS: BP 148/81
[2019-03-12 20:00] VITALS: BP 137/61
[2019-03-13] VITALS: BP 118/61
[2019-03-13 04:00] VITALS: BP 123/57
[2019-03-13 05:14] LABS: BASOPHILS 0.5 % (0-2); EOSINOPHILS 5.4 % (0-7); HEMATOCRIT 34.2 % (36.0-48.0); HEMOGLOBIN 11.2 g/dL (12-16); IMMATURE GRANULOCYTES 0.1 % (0-5); LYMPHOCYTES 29.1 % (15-50); MCH 31.9 pg (26.0-34.0); MCHC 32.7 g/dL (31.0-37.0); MCV 97.4 fL (80.0-100.0); MEAN PLATELET VOLUME 10.1 fL (7.4-10.4); MONOCYTES 4.1 % (2-11); NEUTROPHILS 60.8 % (40-80); PLATELET COUNT 264 10x3/uL (130-400); RBC 3.51 10x6/uL (4.00-5.40); RDW 15.1 % (11.5-14.5); WBC 8.4 10x3/uL (4.8-10.8)
[2019-03-13 05:44] LABS: CALC OSMOLALITY 288 mosm/kg (275-300); CARBON DIOXIDE 25.6 mmol/L (21.0-32.0); CHLORIDE - SERUM 109 mmol/L (98-107); CREATININE - SERUM 0.8 mg/dL (0.6-1.3); GLUCOSE 100 mg/dL (74-106); MAGNESIUM - SERUM 1.7 mg/dL (1.8-2.4); POTASSIUM - SERUM 3.8 mmol/L (3.5-5.1); SODIUM 143 mmol/L (136-145); eGFR NON AFRICAN AMERICAN 76 mL/min (90-120)
[2019-03-13 06:06] LABS: PHOSPHOROUS 2.1 mg/dL (2.5-4.9); UREA NITROGEN 23 mg/dL (7-18)
[2019-03-13 09:45] VITALS: BP 131/59
--- NOTE | 2019-03-13 10:00 | NUR ---
TELEMETRY SB. UP TO CHAIR WITH CALL LIGHT IN REACH. WILL CONT. PLAN OF CARE.
[2019-03-13 13:22] VITALS: BP 117/61
--- NOTE | 2019-03-13 14:58 | NUR ---
OFFERED PT FLU SHOT AND SHE REFUSED
--- NOTE | 2019-03-13 16:27 | NUR ---
IV AND TELEMETRY DCD. DC PLANS GIVEN. UNDERSTANDING VOICED. ESCORTED TO CAR BY W/C.
--- NOTE | 2019-03-13 16:44 | MORECARE ---
CASE MANAGEMENT DISCHARGE SUMMARY PATIENT: TORY ELIZABETH YAMILEX UNIT: [id number] ADM DATE: 03/11/19 AGE: 64 : 54 SEX: F ROOM/BED: D.4862 AUTHOR: ELZBIETA CROCKER PHYSICIAN: REFERRING PHYSICIAN: BERT IGLESIAS MD DATE OF SERVICE: 03/13/19 Discharge Plan Patient Name: TORY ELIZABETH Facility: [facility]:[place] : 1955 Planned Disposition: Home Anticipated Discharge Date: 03/13/19 Discharge Date: 03/13/2019 Expected LOS: 2 Initial Reviewer: [email or web address] Initial Review Date: 03/13/2019 Generated: 03/13/19 5:44 pm DCP- Discharge Planning Updated by [email or web address]: Richelle Lindquist on 03/10/19 6:[address] GUZMAN delivered, explained, signed by the patient, and placed in his chart. Signed form also left with patient. Richelle Lindquist RN, [facility] Coverage Notice Reviewer: [email or web address] - Richelle Lindquist Notice Issued Date-Time: 03/10/2019 19:25 Notice Type: Medicare Outpatient Observation Notice Notice Delivered To: Patient Relationship to Patient: Wax Molder Name: Delivery Method: HAND - Hand Delivered Maya Days: Prior Verbal Notification: Recipient Understood Notice: Recipient Signature: Med Rec Note Co-signed by Attending: Coverage Notice Comment: Patient Name: TORY ELIZABETH Page [id number] at 1644 All edits/amendments must be made on the electronic document DICTATION DATE: 03/13/191643 FARM EQUIPMENT ENGINE MECHANIC: YUE 03/13/191643 RPT#: [id number] DC DATE:03/13/19 STATUS: DIS IN [facility] [address] [place] [address] END OF REPORT
--- NOTE | 2019-03-13 16:53 | MORECARE ---
CASE MANAGEMENT DISCHARGE SUMMARY PATIENT: TORY ELIZABETH YAMILEX UNIT: [id number] ADM DATE: 03/11/19 AGE: 64 : 54 SEX: F ROOM/BED: D.2690 AUTHOR: LIZZETTEDOC PHYSICIAN: REFERRING PHYSICIAN: BERT IGLESIAS MD DATE OF SERVICE: 03/13/19 Discharge Plan Patient Name: TORY ELIZABETH Facility: [facility]:[place] : 1955 Planned Disposition: Home Anticipated Discharge Date: 03/13/19 Discharge Date: 03/13/2019 Expected LOS: 2 Initial Reviewer: [email or web address] Initial Review Date: 03/13/2019 Generated: 03/13/19 5:53 pm DCP- Discharge Planning Updated by [email or web address]: Richelle Lindquist on 03/10/19 6:[address] GUZMAN delivered, explained, signed by the patient, and placed in his chart. Signed form also left with patient. Richelle Lindquist RN, [facility] DCPIA - Discharge Planning Initial Assessment Updated by [email or web address]: Dylan Patel on 03/13/19 4:45 pm * Is the patient Alert and Oriented? Yes * How many steps to enter\exit or inside your home? * PCP DR. MCKOY * Pharmacy [facility] [address] * Preadmission Environment Home Alone * ADLs Independent * Equipment Bedside Commode None Rolling Walker Shower Chair Wheelchair * Other Equipment INCONTINENCE SUPPLIES - ARE[employer] AG[employer] ON AGING * List name and contact numbers for known caregivers / representatives who currently or will assist patient after discharge: CECILIA ELIZABETH, SON, * Verbal permission to speak to the caregivers and representatives has been obtained from the patient. N/A * Community resources currently utilized None * Please name any agencies selected above. NONE * Additional services required to return to the preadmission environment? No * Can the patient safely return to the preadmission environment? Yes * Has this patient been hospitalized within the prior 30 days at any hospital? No Coverage Notice Reviewer: [id number] Anmol Lindquist Notice Issued Date-Time: 03/10/2019 19:25 Notice Type: Medicare Outpatient Observation Notice Notice Delivered To: Patient Relationship to Patient: Transition Manager Name: Delivery Method: HAND - Hand Delivered Maya Days: Prior Verbal Notification: Recipient Understood Notice: Recipient Signature: Med Rec Note Co-signed by Attending: Coverage Notice Comment: Patient Name: TORY ELIZABETH Page [id number] at 1653 All edits/amendments must be made on the electronic document DICTATION DATE: 03/13/191652 HAZARDOUS MATERIALS ANALYST: YUE 03/13/191652 RPT#: [id number] DC DATE:03/13/19 STATUS: DIS IN [facility] [address] [place] [address] END OF REPORT
--- NOTE | 2019-03-13 17:09 | MORECARE ---
CASE MANAGEMENT DISCHARGE SUMMARY PATIENT: TORY ELIZABETH YAMILEX UNIT: [id number] ADM DATE: 03/11/19 AGE: 64 : 54 SEX: F ROOM/BED: D.1756 AUTHOR: ELZBIETA CROCKER PHYSICIAN: REFERRING PHYSICIAN: BERT IGLESIAS MD DATE OF SERVICE: 03/13/19 Discharge Plan Patient Name: TORY ELIZABETH Facility: [facility]:[place] : 1955 Planned Disposition: Home Anticipated Discharge Date: 03/13/19 Discharge Date: 03/13/2019 Expected LOS: 2 Initial Reviewer: [email or web address] Initial Review Date: 03/13/2019 Generated: 03/13/19 6:09 pm Comments DCP- Discharge Planning Updated by [email or web address]: Dylan Patel on 03/13/19 4:[address] Patient Name: TORY ELIZABETH Admission Status: ER Accout number: [id number] Admission Date: 03-11-2019 : 1955 Admission Diagnosis:SHORTNESS OF BREATH Attending: BERT IGLESIAS Current LOS: 2 Anticipated DC Date: 03-13-2019 Planned Disposition: Home Primary Insurance: MEDICARE A & B Discharge Planning Comments: CM MET WITH PT IN ROOM TO DISCUSS DISCHARGE PLANNING AND NEEDS. PT REPORTS LIVING AT HOME INDEPENDENTLY AND ALONE. PT HAS BEDSIDE COMMODE, BOTH KINDS OF WALKERS AND A SHOWER CHAIR WITH NO MEDICAL EQUIPMENT PROVIDER PREFERENCE. PT HAS INCONTINENCE SUPPLIES THROUGH A COMPANY ARRANGED BY [employer]. PT HAS NO OUTSIDE SERVICES ASSISTING IN THE HOME. CM DISCUSSED AVAILABILITY OF HOME HEALTH, REHAB SERVICES AND MEDICAL EQUIPMENT. PT REPORTS SHE IS WORKING WITH [employer] ON [address] TO GET PERSONAL CARE RESTARTED; PT DENIES DISCHARGE NEEDS, REPORTS HER LANDLORD WILL PICK HER UP FOR DISCHARGE HOME. IMPORTANT MESSAGE FROM MEDICARE PROVIDED AND EXPLAINED. MOWER SHARPENER NURSE NOTIFIED. Automotive Tire Technician: Dylan Patel DCP- Discharge Planning Updated by [email or web address]: Richelle Lindquist on 03/10/19 6:[address] GUZMAN delivered, explained, signed by the patient, and placed in his chart. Signed form also left with patient. Richelle Lindquist RN, [facility] DCPIA - Discharge Planning Initial Assessment Updated by [email or web address]: Dylan Patel on 03/13/19 4:45 pm * Is the patient Alert and Oriented? Yes * How many steps to enter\exit or inside your home? * PCP DR. MCKOY * Pharmacy [facility] [address] * Preadmission Environment Home Alone * ADLs Independent * Equipment Bedside Commode None Rolling Walker Shower Chair Wheelchair * Other Equipment INCONTINENCE SUPPLIES - AREA AGENCY ON AGING * List name and contact numbers for known caregivers / representatives who currently or will assist patient after discharge: CECILIA ELIZABETH, PRIMO, * Verbal permission to speak to the caregivers and representatives has been obtained from the patient. N/A * Community resources currently utilized None * Please name any agencies selected above. NONE * Additional services required to return to the preadmission environment? No * Can the patient safely return to the preadmission environment? Yes * Has this patient been hospitalized within the prior 30 days at any hospital? No Coverage Notice Reviewer: [id number] Anmol Lindquist Notice Issued Date-Time: 03/10/2019 19:25 Notice Type: Medicare Outpatient Observation Notice Notice Delivered To: Patient Relationship to Patient: Cuff Maker Name: Delivery Method: HAND - Hand Delivered Maya Days: Prior Verbal Notification: Recipient Understood Notice: Recipient Signature: Med Rec Note Co-signed by Attending: Coverage Notice Comment: Reviewer: [email or web address] - Dylan Patel Notice Issued Date-Time: 03/13/2019 14:50 Notice Type: IM Discharge Notice Notice Delivered To: Patient Relationship to Patient: Cuff Maker Name: Delivery Method: HAND - Hand Delivered Maya Days: Prior Verbal Notification: Recipient Understood Notice: Yes Recipient Signature: Yes Med Rec Note Co-signed by Attending: Coverage Notice Comment: Last DP export: 03/13/19 3:53 p Patient Name: TORY ELIZABETH Page [phone] at 1709 All edits/amendments must be made on the electronic document DICTATION DATE: 03/13/191708 SALES OPERATIONS ANALYST: YUE 03/13/191708 RPT#: [id number] DC DATE:03/13/19 STATUS: DIS IN [facility] [address] [place] [address] END OF REPORT
--- NOTE | 2019-03-20 13:30 | EC ---
PATIENT:TORY ELIZABETH DATE OF SERVICE: 03/11/19 SEX: F MEDICAL RECORD: [id number] DATE OF : [birth year] LOCATION:D. D.212 AGE OF PATIENT: 64 ADMISSION DATE: 03/11/19 REFERRING PHYSICIAN: INTERPRETING PHYSICIAN: MAYCOL HERNANDEZ MD ECHOCARDIOGRAM REPORT ECHO CHARGES 4 ECHO COMPLETE Date: 03/11/19 CLINICAL DIAGNOSIS: MITRAL REGURG HX CAD/STENTS/ HTN ECHOCARDIOGRAPHIC MEASUREMENTS (adult normal given) AC root (d.<3.7cm) 3.6 cm LV Septum d (<1.2 cm> 1.4 cm Valve Excursion 1.6 cm LV Septum (systole) 1.6 cm Left Atria (s.<4.0cm> 4.4 cm LVPW d(<1.2cm) 1.7 cm RV (d.<2.3cm) 3.7 cm LVPW (sytole) 1.8 cm LV diastole(<5.6CM) 4.8 cm MV E-F(>70mm/sec) cm LV systole 3.2 cm LVOT Diameter 1.9 cm MV exc.(>10mm) 1.6 cm Est.ejection fraction (50-75%) % DOPPLER: LVIT cm/sec A 47.0 cm/sec E 122 cm/sec LA cm/sec RVSP 44 mmHg LVOT 126 cm/sec AOP1/2T 897 m/s Asc. Ao 273 cm/sec RVOT 91 cm/sec RA cm/sec PA 135 cm/sec AV Gradient Peak 29.88mmHg AV Mean 15.46mmHg AV Area 1.4 cm MV Gradient Peak 19.39mmHg MV Mean 5.16 mmHg MV Area cm COMMENTS: Forest Landscape Ecology Professor: Dorothea RAMIREZ Manager Clinical: Dorothea Wagner TAPE# PACS Pericardial Effusion N DATE OF SERVICE: 03/11/2019 FINDINGS: 1. Left ventricular chamber size is within normal limits. Left ventricular systolic function is normal at 55% to 60%. 2. Left atrium is enlarged at 4.8 cm. Right atrium and right ventricular chamber sizes are as well mildly dilated. 3. Valvular structures have normal structure and motion. 4. Doppler interrogation reveals mild aortic insufficiency, severe mitral regurgitation, moderate tricuspid regurgitation. No other valvular ECHOCARDIOGRAM REPORT [id number] TORY ELIZABETH insufficiency or stenosis. Pulmonary systolic pressure is estimated at 44 mmHg. 5. No evidence of pericardial effusion or left ventricular thrombus. 6. The patient is in atrial fibrillation during the study. TRANSINT:[id number] Voice Confirmation ID: [id number] DOCUMENT ID: [id number] MAYCOL HERNANDEZ MD at 1330 CC: [id number] DICTATION DATE: 03/11/19 1800 PASSENGER TRAIN BRAKER: 03/12/19 0200 DIS IN 03/13/19 [place] [id number] [place] [id number]
== END 2019-03-13 16:27 | disposition home or self-care (01) | DRG 309 ==
LOC: D.ER 18:42 → D.M2 19:36 → OBSVTIME 19:41 → D.M2 03-11 08:41
PROVIDERS: Family Medicine; ADMIT Family Medicine; ATTEND Family Medicine
DX: I48.0 Paroxysmal atrial fibrillation (principal); I50.30 Unspecified diastolic (congestive) heart failure; Z68.41 Body mass index [BMI] 40.0-44.9, adult; I25.110 Atherosclerotic heart disease of native coronary artery with unstable angina pectoris; E83.42 Hypomagnesemia; I11.0 Hypertensive heart disease with heart failure; E03.9 Hypothyroidism, unspecified; E66.01 Morbid (severe) obesity due to excess calories; I34.0 Nonrheumatic mitral (valve) insufficiency

== ENCOUNTER 2019-11-26 01:40 | Inpatient (IN) | payer MEDICARE ==
[~2019-11-26] VITALS: Ht 157.5 cm; Wt 106.6 kg
--- NOTE | ~2019-11-26 | OP ---
PATIENT NAME: TORY ELIZABETH MEDICAL RECORD: [id number] :53 LOCATION:D.M2 D.2118 ADMISSION DATE:11/26/19 SURGEON: BRADLEY ZEE MD DATE OF OPERATION: 11/27/2019 PROCEDURE: Left heart catheterization, selective coronary angiography, right femoral artery approach. CATHETERS: A 5-Mongolian sheath, 5/4 left and right Abdullahi, 5/4 pig. The procedure was well tolerated. The patient returned to the law, sheath removed. ExoSeal device placed. FINDINGS: Left ventriculography in 30-degree MANZO view: Normal wall motion and normal systolic function. CORONARY ANATOMY: LEFT MAIN: Left main is free of disease. LAD: The area of previous stenting is widely patent. No evidence of restenosis. No progression of [place] disease. CIRCUMFLEX: Widely patent stent, no progression of [place] disease. RIGHT CORONARY ARTERY: Right dominant system. This is widely patent stent, no progression of [place] disease. IMPRESSION: No evidence of restenosis. No significant progression of [place] disease. LV function remains normal. No contraindication of surgery from a cardiovascular standpoint. TRANSINT:[id number] Voice Confirmation ID: [id number] DOCUMENT ID: [id number] BRADLEY ZEE MD CC: [id number] DICTATION DATE: 11/27/19 1558 DIRECTOR MOBILE: 11/27/191926 ADM IN [facility] [address] [place] [id number]
--- NOTE | ~2019-11-26 | HEMODYNAMI ---
PATIENT:TORY ELIZABETH MEDICAL RECORD: [id number] : 53 LOCATION:[facility] [place] [facility] [id number] ADMISSION DATE: 11/26/19 Generatedon:11/27/201915:49 Patient name: TORY ELIZABETH Patient #: [id number] SSN: : 1955 Date of study: 11/27/2019 Page: Of Hemodynamic Procedure Report Patient Data Patient Demographics Procedure consent was obtained First Name: TORY Gender: Female Last Name: CLARA : 1955 [facility] Initial: YAMILEX Age: 64 year(s) Patient #: [id number] Race: Unknown Additional ID: [id number] Contact details Address: [address] [place] [address] State: [place] City: [place] Zip code: [address] Past Medical History Allergies: No known allergies Admission Admission Data Admission Date: 11/26/2019 Admission Time: 3:43 Room #: D.2118 Height (in.): 62 BSA: 2.05 (m2) Height (cm.): 157.48 BMI: 43.15 (kg/m2) Weight (lbs.): 235.9 Weight (kg.): 107 Lab Results Lab Result Date: 11/27/2019 Lab Result Time: 0:00 Biochemistry Name Units Result Min Max BUN mg/dl 13 --(--*-)-- 7 18 Creatinine mg/dl 0.7 --(*---)-- 0.6 1.3 eGFR ml/min 88.50049 -*(----)-- 90 120 NONAFRICAN CBC Name Units Result Min Max Hematocrit % 36.4 *-(----)-- 42 54 Hemoglobin g/dl 11.9 *-(----)-- 13.5 17.5 Procedure Procedure Types Cath Procedure Diagnostic Procedure C [facility] w/Coronaries Sedation Charges Moderate Sedation up to 15 minutes Procedure Description Procedure Date Procedure Date: 11/27/2019 Procedure Start Time: 15:32 Procedure End Time: 15:46 Procedure Staff Name Function Asher Llamas MD Performing Physician Dayton Suggs RN Nurse Cristela Greco RT Scrub Va Lucia RN Nurse Selma Ferrer RT Monitor Elisabeth Salomon RT Scrub Procedure Data Cath Procedure Fluoroscopy Diagnostic fluoroscopy Total fluoroscopy Time: 1.3 time: 1.3 min min Diagnostic fluoroscopy Total fluoroscopy dose: 562 dose: 562 mGy mGy Contrast Material Contrast Material Type Amount (ml) Isovue 300 57 Entry Location Entry Primary Successful Side Size Upsize Upsize Entry Closure Succes sful Closure Location (Fr) 1 (Fr) 2 (Fr) Remarks Device Remarks Femoral Right 5 Fr unable Exoseal artery to access radial sheath Estimated blood loss: 10 ml Diagnostic catheters Device Type Used For End Catheter Placement MULTIPACK JL 4.0 5Fr Procedure catheter MULTIPACK 3DRC 5Fr Procedure catheter MULTIPACK Pigtail 5 Fr Ventriculography catheter Procedure Complications No complications Procedure Medications Medication Administration Route Dosage 0.9% NaCl I.V. 100 ml/hr Oxygen etCO2 Nasal cannula 2 l/min Lidocaine 2% added to field 20 Heparin Flush Bag added to field 2 bags (1000units/500ml NS) Versed I.V. 2 mg Fentanyl I.V. 50 mcg Fentanyl I.V. 50 mcg Hemodynamics Rest BSA: 2.05 (m2) O2 Consumption: Estimated: 196.55 (ml/min) O2 Consumption indexed : Estimated:95.88 (ml/min/m) Heart Rate: 76 (bpm) Pressure Samples Time Site Value (mmHg) Purpose Heart Use Rate(bpm) 15:43 LV 161/48,53 Snapshot 111 Snapshots Pre Cath Intra NCS Post Cath Vital Signs Time Heart Resp SPO2 etCO2 NIBP (mmHg) Rhythm Pain Sedation Rate (ipm) (%) (mmHg) Status Level (bpm) 15:19:55 76 21 91 30 162/82(122) NSR 0 (11) 10(A) , No pain 15:24:26 80 18 97 32.2 148/84(118) NSR 0 (11) 10(A) , No pain 15:28:56 73 16 97 16.4 134/74(91) NSR 0 (11) 10(A) , No pain 15:33:24 75 19 96 33.7 147/80(114) NSR 0 (11) 9(A) , No pain 15:37:59 75 20 98 38.2 141/76(111) NSR 0 (11) 9(A) , No pain 15:42:31 77 17 96 38.2 139/76(104) NSR 0 (11) 10(A) , No pain 15:47:01 72 17 95 36.7 144/78(119) NSR 0 (11) 10(A) , No pain Medications Time Medication Route Dose Verified Delivered Reason Notes Eff ectiveness by by 15:19:03 0.9% NaCl I.V. 100 Asher Va used for ml/hr [facility] procedure RN 15:19:08 Oxygen etCO2 2 Asher Va used for Nasal l/min [facility] procedure cannula MD CEBALLOS 15:19:15 Lidocaine 2% added 20ml Asher Asher for local to vial [facility] anesthetic field MD SHAH 15:19:19 Heparin Flush added 2 Asher Asher used for Bag to bags [facility] procedure (1000units/500ml field MD SHAH NS) 15:25:08 Fentanyl I.V. 50 Asher Va for mcg [facility] Khari sedation RN 15:25:57 Versed I.V. 2 mg Asher Va for [facility] Khari sedation RN 15:31:30 Fentanyl I.V. 50 Asher Va for [facility] Khari sedation MD CEBALLOSrail express clerk Log Time Note 14:39:25 Informed consent obtained and on chart 14:40:24 Procedure Status Urgent Heart Cath (IP). 14:40:26 Jessie Tim RT(R) sent for patient. Start room use. 14:40:26 Time tracking: Regular hours (M-F 7:00 - 5:00) 14:40:28 Plan of Care:Hemodynamics will remain stable., Cardiac rhythm will remain stable., Comfort level will be maintained., Respiratory function will remain adequate., Patient/ family verbilizes understanding of procedure., Procedure tolerated without complication., Recovers from procedure without complications.. 14:40:31 H&P Date Dictated: 11/27/2019 ER History on chart.. 14:44:01 Patient allergic to No known allergies 14:44:30 Lab Result : BUN 13 mg/dl 14:44:30 Lab Result : Creatinine 0.7 mg/dl 14:44:30 Lab Result : eGFR NONAFRICAN 88.18617 ml/min 14:44:30 Lab Result : Hemoglobin 11.9 g/dl 14:44:30 Lab Result : Hematocrit 36.4 % 14:44:39 Patient Weight : 235.9 lbs 14:44:48 Patient Height : 62 inches 15:07:52 Patient received from Med II to CCL 2 Alert and oriented. Tansferred to table in Supine position. 15:07:54 Warm blankets applied, and abdullahi hugger turned on for patient comfort. 15:07:54 Correct patient and procedure confirmed by team. 15:07:59 ECG and BP/O2 sat monitors applied to patient. 15:08:16 Pre-procedure instructions explained to patient. 15:08:25 Family in waiting room. 15:08:27 Patient NPO since Midnight. 15:18:25 Vital chart was started 15:19:03 0.9% NaCl 100 ml/hr I.V. was administered by Va Lucia RN; used for procedure; Verbal order read back and verified. 15:19:08 Oxygen 2 l/min etCO2 Nasal cannula was administered by Va Lucia RN; used for procedure; Verbal order read back and verified. 15:19:15 Lidocaine 2% 20ml vial added to field was administered by Asher Llamas MD; for local anesthetic; Verbal order read back and verified. 15:19:19 Heparin Flush Bag (1000units/500ml NS) 2 bags added to field was administered by Asher Llamas MD; used for procedure; Verbal order read back and verified. 15:19:29 Is the patient allergic to Iodine/contrast media? No. 15:19:31 Was the patient premedicated? Yes 15:19:33 Is patient on blood thinner?No 15:19:35 Patient diabetic? No. 15:19:38 Snore? Yes 15:19:40 Sleep apnea? No 15:19:44 Dentures? Yes ? 15:19:49 Patient pain scale 0/10 ?. 15:19:54 IV patent on arrival in left forearm with 0.9% NaCl at [facility]. 15:19:57 Lab results completed and on chart. 15:20:01 Right Radial & Right Groin area was prepped with chlora-prep and draped in sterile fashion 15:20:02 Alarms reviewed by Dipika N. 15:20:03 Sharps counted by scrub and verified by R.N. 15:20:06 Physician arrived 15:24:32 Baseline sample Acquired. 15::34 Full Disclosure recording started 15:24:40 --------ALL STOP TIME OUT------ 15:24:41 Final Timeout: patient, procedure, and site verified with staff and physician. All members of the team are in agreement. 15:24:43 Right Radial & Right Groin site verified by team. 15:24:47 Fire Safety Assessment: A--An alcohol-based skin anteseptic being used preoperatively., C--Open oxygen or nitrous oxide is being used., D--An ESU, laser, or fiber-optic light is being used. 15:24:51 Physical assessment completed. ASA score P 2 - A patient with mild systemic disease as per Asher Llamas MD. 15:25:04 2) 60-89 Mildly reduced kidney function, and other findings (as for stage 1) point to kidney disease. 15:25:08 Fentanyl 50 mcg I.V. was administered by Va Lucia RN; for sedation; Verbal order read back and verified. 15:25:41 Maximum allowable contrast dose (3.7 X eGFR X 0.75)247 ml. 15:25:46 Sedation plan: IV Moderate Sedation Medication:Versed, Fentanyl 15:25:57 Versed 2 mg I.V. was administered by Va Lucia RN; for sedation; Verbal order read back and verified. 15:31:30 Fentanyl 50 mcg I.V. was administered by Va Lucia RN; for sedation; Verbal order read back and verified. 15:32:43 Procedure started. 15:34:44 Zero performed for pressure channel P1 15:36:58 ACIST Syringe (84300) opened to sterile field. 15:36:59 Medline Cath Pack (HNOM08851) opened to sterile field. 15:36:59 Bag Decanter (2002) opened to sterile field. 15:36:59 ACIST Hand Control (20352) opened to sterile field. 15:37:00 ACIST Manifold (18446) opened to sterile field. 15:37:08 MBrace Wrist Support ([id number]) opened to sterile field. 15:37:11 EMERALD Guide Wire (671-410) opened to sterile field. 15:37:29 Use device set Femoral Dx 15:37:36 SHEATH 5FR [place] (NGV733) opened to sterile field. 15:37:41 DIAGNOSTIC Multipack 5Fr catheter set (QV9966) opened to sterile field. 15:38:21 Local anesthetic to right femoral artery with Lidocaine 2% by Asher Llamas MD.ADDITIONAL ACCESS 15:38:40 A 5 Fr sheath was inserted into the Right Femoral arteryunable to access radial sheath 15:38:55 A MULTIPACK JL 4.0 5Fr catheter was advanced over the wire and used for Procedure. 15:40:53 LCA angiography performed. 15:40:57 Catheter removed. 15:41:04 A MULTIPACK 3DRC 5Fr catheter was advanced over the wire and used for Procedure. 15:41:12 RCA angiography performed. 15:41:53 Catheter removed. 15:42:13 A MULTIPACK Pigtail 5 Fr catheter was advanced over the wire and used for Ventriculography. 15:42:17 LV angiography performed. 15:42:21 EXOSEAL 5Fr (EX500) opened to sterile field. 15:43:35 EF : 55 % 15:43:36 Catheter removed. 15:43:47 Sheath removed intact; hemostasis achieved with Exoseal to the Right Femoral artery. 15:43:56 Procedure ended.(Physican Out) 15:44:09 Fluoroscopy time 01.30 minutes. 15:44:13 Fluoroscopy dose: 562 mGy 15:44:13 Flurop Dose total: 562 15:44:19 Dose Area Product 88541 mGy/cm. 15:44:23 Contrast amount:Isovue 300 57ml. 15:44:25 Maximum allowable dose exceeded? No. 15:44:26 Sharps counted by scrub and verified by R.N. 15:44:27 Insertion/operative site no bleeding no hematoma. 15:44:31 Post-op/insertion site Right Femoral artery dressed using a 4 x 4 and Tegaderm. 15:44:38 Post procedure rhythm: unchanged. 15:44:42 Estimated blood loss: 10 ml 15:44:44 Post procedure instruction explained to patient.Patient verbalizes understanding. 15:44:53 Procedure type changed to Cath procedure, Diagnostic procedure, LHC, LHC w/Coronaries, Sedation Charges, Moderate Sedation up to 15 minutes 15:44:54 Procedure and supply charges have been captured, reviewed, submitted and are correct. 15:46:24 Procedure Complication : No complications 15:46:27 Vital chart was stopped 15:46:28 [facility] Findings: mild to moderate CAD (<70%) 15:46:31 See physician's report for complete and final results. 15:46:33 Procedure ended. 15:46:33 Full Disclosure recording stopped 15:46:47 End room use (Document Last) 15:47:05 End room use (Document Last) 15:47:39 End room use (Document Last) Device Usage Item Name Manufacture Quantity Catalog Hospital Part Current Minimal Lot# / Number Charge Number Stock Stock Serial# Code ACIST Acist 1 24960 278320 451901 145000 20 Syringe Medical (15116) Systems Inc Medline Medline 1 [id number] 261928 91435 724178 5 Cath Pack ([id number]) Bag Microtek 1 981120 88604 412821 5 Decanter Medical Inc. () ACIST Hand Acist 1 05077 901043 413067 424735 5 Control Medical (99203) Systems Inc ACIST Acist 1 68128 584567 398594 200060 5 Manifold Medical (96224) Systems Inc MBrace Advanced 1 140-0250-00 623870 02341 586777 5 Wrist Vascular Support Dynamics (161889480) EMERALD Cardinal 1 502-455 632092 717136 052391 5 Guide Wire Health (502-455) SHEATH 5FR Terumo 1 NDV481 731183 690650 259965 5 [place] (XSS785) DIAGNOSTIC Cardinal 1 AD0547 651030 61361 131396 30 Multipack Health 5Fr catheter set (HV7773) MULTIPACK Cardinal 1 687735 5 JL 4.0 5Fr Health catheter MULTIPACK Cardinal 1 272743 5 3DRC 5Fr Health catheter MULTIPACK Cardinal 1 238088 5 Pigtail 5 Health Fr catheter EXOSEAL 5Fr Cardinal 1 EX500 743679 679497 283689 10 (EX500) Health Signature Audit Roslyn Stage Time Signature Unsigned Intra-Procedure 11/27/2019 Selma Ferrer 3:47:05 PM RT(R) Intra-Procedure 11/27/2019 Va Lucia 3:47:39 PM RN Intra-Procedure 11/27/[address] 3:48:59 PM Omar MD Signatures Performing Physician : Signature : Asher Llamas MD Date : Time : Nurse : Dayton Suggs RN Signature : Date : Time : Nurse : Va Lucia RN Signature : Date : Time : Monitor : Selma Ferrer Signature : RT Date : Time : [facility] [address] [place] [address]
--- NOTE | ~2019-11-26 | EC ---
PATIENT:TORY ELIZABETH DATE OF SERVICE: 11/26/19 SEX: F MEDICAL RECORD: [id number] DATE OF : 53 LOCATION:[facility] AGE OF PATIENT: 64 ADMISSION DATE: 11/26/19 REFERRING PHYSICIAN: INTERPRETING PHYSICIAN: BRADLEY ZEE MD ECHOCARDIOGRAM REPORT ECHO CHARGES 4 ECHO COMPLETE Date: 11/26/19 CLINICAL DIAGNOSIS: AFIB ECHOCARDIOGRAPHIC MEASUREMENTS (adult normal given) AC root (d.<3.7cm) 2.9 cm LV Septum d (<1.2 cm> 0.9 cm Valve Excursion 1.9 cm LV Septum (systole) 1.0 cm Left Atria (s.<4.0cm> 4.1 cm LVPW d(<1.2cm) 1.2 cm RV (d.<2.3cm) 2.5 cm LVPW (sytole) 1.3 cm LV diastole(<5.6CM) 6.8 cm MV E-F(>70mm/sec) cm LV systole 5.5 cm LVOT Diameter 1.7 cm MV exc.(>10mm) cm Est.ejection fraction (50-75%) % DOPPLER: LVIT cm/sec A 155 cm/sec E 179 cm/sec LA cm/sec RVSP 33.7 mmHg LVOT 323 cm/sec AOP1/2T m/s Asc. Ao 318 cm/sec RVOT 100 cm/sec RA cm/sec PA 111 cm/sec AV Gradient Peak 40.5 mmHg AV Mean 19.0 mmHg AV Area 3.1 cm MV Gradient Peak 20.0 mmHg MV Mean 8.8 mmHg MV Area cm COMMENTS: Ditch Repairer: Marychuy DIAZ Outsole Leveler: 3 Dr. Glover TAPE# Pericardial Effusion N DATE OF SERVICE: Adequate 2D, color flow imaging, spectral Doppler, and M-Mode. No LVH. LV internal dimensions are normal. Wall motion is normal. EF is greater than or equal to 55%. Aortic valve is tricuspid with adequate valve excursion, probably moderate MR by color flow imaging. Left atrium is minimally dilated at 4.1 cm. Mitral valve shows no prolapse. Moderate AI. Right-sided chambers are grossly normal. Mild TR. ECHOCARDIOGRAM REPORT [id number] TORY ELIZABETH TRANSINT:[id number] Voice Confirmation ID: [id number] DOCUMENT ID: [id number] BRADLEY ZEE MD CC: [id number] DICTATION DATE: 11/27/19846 KITCHEN AIDE: 11/27/19 09 ADM IN [place] [id number] [place] [id number]
[~2019-11-26 01:40] MED LIST changes: +ZANAFLEX4 MG PO
[2019-11-26] MEDS ORDERED: MAG-OX 400 MG400 MG PO (01:53)
[2019-11-26 02:12] LABS: BASOPHILS 0.5 % (0-2); EOSINOPHILS 1.9 % (0-7); HEMATOCRIT 38.8 % (36.0-48.0); HEMOGLOBIN 12.5 g/dL (12-16); IMMATURE GRANULOCYTES 0.3 % (0-5); MCH 29.4 pg (26.0-34.0); MCHC 32.2 g/dL (31.0-37.0); MCV 91.3 fL (80.0-100.0); MONOCYTES 4.6 % (2-11); NEUTROPHILS 76.7 % (40-80); PLATELET COUNT 278 10x3/uL (130-400); RBC 4.25 10x6/uL (4.00-5.40); WBC 11.7 10x3/uL (4.8-10.8)
[2019-11-26 02:19] LABS: ANION GAP 8.4 mmol/L (8-16); CALCIUM 9.4 mg/dL (8.5-10.1); CARBON DIOXIDE 31.4 mmol/L (21.0-32.0); CREATININE - SERUM 0.9 mg/dL (0.6-1.3); POTASSIUM - SERUM 3.8 mmol/L (3.5-5.1)
[2019-11-26 02:28] LABS: ALBUMIN 3.4 g/dL (3.4-5.0); BILIRUBIN - TOTAL 0.38 mg/dL (0.2-1.3); PROTEIN - SERUM 8.5 g/dL (6.4-8.2)
[2019-11-26 02:30] LABS: TROPONIN-I 0.124 ng/mL (0.000-0.060)
[2019-11-26 03:21] LABS: BILIRUBIN NEGATIVE (NEGATIVE); GLUCOSE NEGATIVE (NEGATIVE); KETONE NEGATIVE (NEGATIVE); NITRITE NEGATIVE (NEGATIVE); UROBILINOGEN NORMAL (NORMAL)
[2019-11-26 03:23] LABS: BACTERIA NONE SEEN /hpf (NEGATIVE); EPITHELIAL CELLS 0-5 /hpf (0-5); RED CELLS - URINE 0-5 /hpf (0-5); WHITE CELLS - URINE 0-5 /hpf (NEGATIVE)
--- NOTE | 2019-11-26 05:00 | NUR ---
PT BROUGHT TO FLOOR VIA WC, AOX4. PT AMBULATED TO BATHROOM WELL WITH WALKER. IV RIGHT AC INFUSING NS @ 100. PT NAUSEOUS FROM MOVEMENT. ZOFRAN GIVEN, EMESIS BAG PROVIDED. REMINDED PT SHE IS NPO, VERBALIZED UNDERSTANDING. ASSISTED PT IN CHANGING INTO GOWN. STATES SHE IS HAVING PAIN TO LEFT ABD. JUST RECIEVED MORPHINE. DENIES OTHER NEEDS. CL IN REACH, WILL CTM
[2019-11-26 05:13] VITALS: BP 177/83; BMI 43.1
[2019-11-26 08:44] LABS: CREATINE KINASE 85 UL (21-215)
[2019-11-26 08:45] LABS: CKMB 1.9 U/L (0.0-3.6)
[2019-11-26 08:56] LABS: ALT (SGPT) 19 U/L (10-68); CALC OSMOLALITY 273 mosm/kg (275-300); CALCIUM 8.9 mg/dL (8.5-10.1); CARBON DIOXIDE 27.2 mmol/L (21.0-32.0); CHLORIDE - SERUM 100 mmol/L (98-107); CHOL - HDL RATIO 3.2 ratio (2.3-4.1); CHOLESTEROL, TOTAL 183 mg/dL (0-200); CREATININE - SERUM 0.7 mg/dL (0.6-1.3); GLUCOSE 163 mg/dL (74-106); HDL CHOLESTEROL 58 mg/dL (32-96); LDL CHOLESTEROL 116 mg/dL (0-100); POTASSIUM - SERUM 3.8 mmol/L (3.5-5.1); SODIUM 135 mmol/L (136-145); TRIGLYCERIDE 47 mg/dL (30-200); UREA NITROGEN 13 mg/dL (7-18); eGFR NON AFRICAN AMERICAN 89 mL/min (90-120)
[2019-11-26 09:04] LABS: BASOPHILS 0.3 % (0-2); EOSINOPHILS 0.8 % (0-7); HEMATOCRIT 37.4 % (36.0-48.0); HEMOGLOBIN 12.1 g/dL (12-16); IMMATURE GRANULOCYTES 0.3 % (0-5); LYMPHOCYTES 12.7 % (15-50); MCH 29.4 pg (26.0-34.0); MCHC 32.4 g/dL (31.0-37.0); MEAN PLATELET VOLUME 9.4 fL (7.4-10.4); MONOCYTES 5.6 % (2-11); NEUTROPHILS 80.3 % (40-80); PLATELET COUNT 326 10x3/uL (130-400); RBC 4.11 10x6/uL (4.00-5.40); RDW 13.9 % (11.5-14.5)
[2019-11-26 09:05] VITALS: BP 165/80
[2019-11-26 09:20] LABS: WBC 15.6 10x3/uL (4.8-10.8)
--- NOTE | 2019-11-26 10:14 | NUR ---
PT ALERT X 4. BREATH SOUNDS CLEAR BILAT. TELEMETRY IN PLACE. IV TO RIGHT HAND, PATENT, DRESSING CDI. PT REPORTING PAIN OF 7/10, MEDICATED PER ORDERS, WILL CONTINUE TO MONITOR. PT PREPPED FOR CARDIAC CATH PER ORDERS. BED LOW, CALL LIGHT IN REACH. NO OTHER NEEDS AT THIS TIME.
[2019-11-26 12:34] VITALS: BP 147/74
[2019-11-26 13:22] VITALS: BMI 43.0
[2019-11-26 15:16] LABS: CKMB 1.8 U/L (0.0-3.6); CREATINE KINASE 75 UL (21-215)
[2019-11-26 15:19] LABS: TROPONIN-I 0.107 ng/mL (0.000-0.060)
--- NOTE | 2019-11-26 15:44 | NUR ---
SERIAL EKG'S NOT TAKEN PER MARIO NG, MINE WIRER
[2019-11-26 17:36] VITALS: Ht 157.5 cm; Wt 106.6 kg
[2019-11-26 18:01] VITALS: BP 139/69
[2019-11-26 20:00] VITALS: BP 168/69
[2019-11-26 20:33] LABS: CKMB 1.9 U/L (0.0-3.6); CREATINE KINASE 81 UL (21-215)
[2019-11-26 20:37] LABS: TROPONIN-I 0.102 ng/mL (0.000-0.060)
[2019-11-27] VITALS: BP 185/73
--- NOTE | 2019-11-27 00:30 | NUR ---
I have reviewed this patient and I concur with the Shift Assessment completed by the Licensed Practical Nurse today this shift.
--- NOTE | 2019-11-27 01:15 | NUR ---
PT RESTING IN BED. EYES CLOSED. NO SIGNS OF DISTRESS. BREATHING EVEN AND UNLABORED. IV SITE RT FA DRESSING CLEAN DRY AND INTACT. NO SIGNS OF INFECTION OR INFULTRATION. SKIN CLEAN DRY AND ITNACT. LUNG SOUNDS CLEAR. BOWEL SOUNDS ACTIVE. WILL CONTINUE PLAN OF CARE. CALL LIGHT IN REACH. BED LOWERED AND LOCKED. BED RAILS UPX2.
[2019-11-27 04:00] VITALS: BP 129/63
[2019-11-27 06:04] LABS: BASOPHILS 0.3 % (0-2); EOSINOPHILS 1.4 % (0-7); HEMATOCRIT 36.4 % (36.0-48.0); HEMOGLOBIN 11.9 g/dL (12-16); IMMATURE GRANULOCYTES 0.3 % (0-5); LYMPHOCYTES 18.5 % (15-50); MCHC 32.7 g/dL (31.0-37.0); MCV 91.7 fL (80.0-100.0); MONOCYTES 6.5 % (2-11); PLATELET COUNT 307 10x3/uL (130-400); RBC 3.97 10x6/uL (4.00-5.40); RDW 14.4 % (11.5-14.5); WBC 13.6 10x3/uL (4.8-10.8)
[2019-11-27 06:16] LABS: APTT 26.6 SECONDS (22.8-39.4); INR 1.12 (0.85-1.17); PROTIME 14.3 SECONDS (11.6-15.0)
[2019-11-27 06:28] LABS: ALBUMIN 2.9 g/dL (3.4-5.0); ALKALINE PHOSPHATASE 79 U/L (30-120); ALT (SGPT) 17 U/L (10-68); BILIRUBIN - TOTAL 0.57 mg/dL (0.2-1.3); CALCIUM 8.5 mg/dL (8.5-10.1); CARBON DIOXIDE 27.7 mmol/L (21.0-32.0); CHLORIDE - SERUM 104 mmol/L (98-107); CREATININE - SERUM 0.7 mg/dL (0.6-1.3); MAGNESIUM - SERUM 1.7 mg/dL (1.8-2.4); PHOSPHOROUS 4.3 mg/dL (2.5-4.9); POTASSIUM - SERUM 3.8 mmol/L (3.5-5.1); PRO BNP 1687 pg/mL (0-125); PROTEIN - SERUM 6.9 g/dL (6.4-8.2); SODIUM 139 mmol/L (136-145); UREA NITROGEN 13 mg/dL (7-18); eGFR NON AFRICAN AMERICAN 89 mL/min (90-120)
[2019-11-27 06:29] LABS: AMYLASE - SERUM 26 U/L (25-115); CALC OSMOLALITY 278 mosm/kg (275-300); GLUCOSE 110 mg/dL (74-106); LIPASE 63 U/L (73-393)
--- NOTE | 2019-11-27 07:50 | NUR ---
PT RESTING QUIETLY IN BED. PT REPORTS PAIN TO IV TO RIGHT FOREARM. SITE NOTED TO BE RED AND LEAKING AT SITE. IV RESITED TO LEFT HAND 20G X 1 STICK. GOOD BLOOD RETURN, EASILY FLUSHED. NS @ 50 ML/HR INFUSING VIA PUMP. PT REPORTS PAIN 3/10 AT THIS TIME. DENIES FURTHER NEEDS AT THIS TIME, BUT DOES REQUEST WHEN "CATH" WILL BE COMPLETED. CONTACTED ICT SECURITY SPECIALIST REGARDING PROCEDURE. WAS INFORMED AT 1300 AND INFORMED PT. PT DENIES FURTHER QUESTIONS AT THIS TIME. CL WITHIN REACH. ENCOURAGED TO CALL WITH NEED. CONTINUE POC
[2019-11-27 08:00] VITALS: BP 114/36
[2019-11-27 12:01] VITALS: BP 156/75
--- NOTE | 2019-11-27 15:15 | NUR ---
IV INFILTRATED TO RIGHT ARM. REDNESS AND SWELLING NOTED TO SITE. IV 22 G RESITED TO RIGHT FOREARM X 2 STICKS. GOOD BLOOD RETURN, EASILY FLUSHED. PT KWAME WELL.
--- NOTE | 2019-11-27 18:07 | NUR ---
BED REST UP. GROIN STABLE.
[2019-11-27 18:23] VITALS: BP 158/81
--- NOTE | 2019-11-27 19:00 | NUR ---
BEDSIDE REPORT RECIEVED. PATIENT IS ALERT AND ORIENTATED. PATIENT IS RESTING COMFORTABLY IN BED AND CALL LIGHT IS WITHIN REACH.
[2019-11-27 20:00] VITALS: BP 142/59
[2019-11-28 04:00] VITALS: BP 101/62
[2019-11-28 05:16] LABS: BASOPHILS 0.5 % (0-2); EOSINOPHILS 3.3 % (0-7); HEMOGLOBIN 11.3 g/dL (12-16); IMMATURE GRANULOCYTES 0.2 % (0-5); LYMPHOCYTES 13.6 % (15-50); MCH 29.3 pg (26.0-34.0); MCHC 32.3 g/dL (31.0-37.0); MCV 90.7 fL (80.0-100.0); MEAN PLATELET VOLUME 9.1 fL (7.4-10.4); MONOCYTES 6.5 % (2-11); NEUTROPHILS 75.9 % (40-80); PLATELET COUNT 277 10x3/uL (130-400); RBC 3.86 10x6/uL (4.00-5.40); WBC 12.6 10x3/uL (4.8-10.8)
--- NOTE | 2019-11-28 05:17 | NUR ---
PATIENT HAS BEEN UP IN CHAIR FOR MOST OF THE NIGHT. SHE WAS GIVEN MORPHINE FOR PAIN. SHE WAS GIVEN ZOFRAN FOR NAUSEA, AND GIVEN FLEXERIL FOR LEG SPASMS. CALL LIGHT IS IN REACH.
[2019-11-28 06:13] LABS: CALC OSMOLALITY 272 mosm/kg (275-300); CARBON DIOXIDE 25.1 mmol/L (21.0-32.0); CHLORIDE - SERUM 103 mmol/L (98-107); CREATININE - SERUM 0.7 mg/dL (0.6-1.3); GLUCOSE 138 mg/dL (74-106); MAGNESIUM - SERUM 1.7 mg/dL (1.8-2.4); PHOSPHOROUS 3.3 mg/dL (2.5-4.9); POTASSIUM - SERUM 3.7 mmol/L (3.5-5.1); SODIUM 136 mmol/L (136-145); UREA NITROGEN 11 mg/dL (7-18); eGFR NON AFRICAN AMERICAN 89 mL/min (90-120)
[2019-11-28 08:00] VITALS: BP 124/67
--- NOTE | 2019-11-28 10:33 | NUR ---
PT LEAVING UNIT VIA BED WITH OR STAFF AT THIS TIME
[2019-11-28] MEDS ORDERED: HYDROCODON-ACE1 EAC7 PO (12:27)
--- NOTE | 2019-11-28 16:52 | NUR ---
LT HAND NOTED WITH EDEMA IV INFILTRATED RESITED TO LEFT AC WITH 22 GA IV CATH X2 STICKS USING ASEPTIC TECHNIQUE PT TOLERATED WELL
--- NOTE | 2019-11-28 19:42 | NUR ---
RECEIVED BEDSIDE REPORT. PATIENT IS ALERT AND ORIENTED, RESTING COMFORTABLY IN BED. RESPIRATIONS ARE EVEN AND UNLABORED. NO S/S OF DISTRESS. NO C/O PAIN. CALL LIGHT WITHIN REACH. WILL CPOC.
[2019-11-29 00:30] VITALS: BP 134/82
[2019-11-29 04:30] VITALS: BP 146/80
[2019-11-29 05:15] LABS: BASOPHILS 0.4 % (0-2); EOSINOPHILS 0.9 % (0-7); HEMOGLOBIN 10.2 g/dL (12-16); IMMATURE GRANULOCYTES 0.2 % (0-5); LYMPHOCYTES 15.7 % (15-50); MCH 29.2 pg (26.0-34.0); MCHC 31.9 g/dL (31.0-37.0); MCV 91.7 fL (80.0-100.0); MEAN PLATELET VOLUME 9.1 fL (7.4-10.4); MONOCYTES 7.1 % (2-11); NEUTROPHILS 75.7 % (40-80); PLATELET COUNT 278 10x3/uL (130-400); RBC 3.49 10x6/uL (4.00-5.40); RDW 14.5 % (11.5-14.5)
[2019-11-29 05:29] LABS: CALC OSMOLALITY 271 mosm/kg (275-300); CALCIUM 7.9 mg/dL (8.5-10.1); CARBON DIOXIDE 25.4 mmol/L (21.0-32.0); CHLORIDE - SERUM 104 mmol/L (98-107); CREATININE - SERUM 0.7 mg/dL (0.6-1.3); GLUCOSE 137 mg/dL (74-106); MAGNESIUM - SERUM 1.8 mg/dL (1.8-2.4); PHOSPHOROUS 2.6 mg/dL (2.5-4.9); POTASSIUM - SERUM 3.9 mmol/L (3.5-5.1); SODIUM 135 mmol/L (136-145); UREA NITROGEN 12 mg/dL (7-18); eGFR NON AFRICAN AMERICAN 89 mL/min (90-120)
--- NOTE | 2019-11-29 07:15 | NUR ---
RECEIVED PT IN BED AAOX4 RESP UNLABORED SKIN W/D COLOR WNL DENIES ANY NEEDS AT THIS TIME C/O MILD DISCOMFORT AT THIS TIME
--- NOTE | 2019-11-30 21:36 | MORECARE ---
CASE MANAGEMENT DISCHARGE SUMMARY PATIENT: TORY ELIZABETH YAMILEX UNIT: [id number] ADM DATE: 11/26/19 AGE: 64 : 54 SEX: F ROOM/BED: D.0360 AUTHOR: LIZZETTE,DOC PHYSICIAN: REFERRING PHYSICIAN: JAMIE SAL MD DATE OF SERVICE: 11/30/19 Discharge Plan Patient Name: TORY ELIZABETH Facility: [facility]:[place] : 1955 Planned Disposition: Home Anticipated Discharge Date: Discharge Date: 11/29/2019 Expected LOS: Initial Reviewer: [email or web address] Initial Review Date: 11/29/2019 Generated: 11/30/19 10:35 pm Comments DCP- Discharge Planning Updated by [email or web address]: Felecia Luna on 11/30/19 8:[address] LATE ENTRY 11/29/19 Patient Name: TORY ELIZABETH Admission Status: ER Accout number: [id number] Admission Date: 11-26-2019 : 1955 Admission Diagnosis:OTHER SPECIFIED ABNORMAL FINDINGS OF BLOOD CHEMISTRY Attending: JAMIE SAL Current LOS: 3 Anticipated DC Date: Planned Disposition: Home Primary Insurance: MEDICARE A & B Discharge Planning Comments: CM met with patient to complete initial dc planning assessment. CM educated patient on the CM role and verbal consent given by patient to complete assessment. Patient lives at home alone. Patient is independent. At discharge patient plans to return home and feels this is a safe discharge. CM discussed availability of home health, rehab services, and medical equipment. Patient needs walk test for home 02. JACKIE signed for [facility]. Patient will have friend to transport home. Patient denied known discharge needs at this time. D/C IMM signed 11/29/19 @ 1620. CM will continue to follow and will assist as needed with dc plans/needs. Aguilar to deliver portable 02 to patient's room prior to discharge. Superintendent Pier: Felecia Luna DCPIA - Discharge Planning Initial Assessment Updated by [email or web address]: Felecia Luna on 11/30/19 9:31 pm * Is the patient Alert and Oriented? Yes * How many steps to enter\exit or inside your home? * PCP LEELEE * Pharmacy [facility] * Preadmission Environment Home Alone * ADLs Independent * Other Equipment WALKER, CANE * List name and contact numbers for known caregivers / representatives who currently or will assist patient after discharge: CECILIA ELIZABETH - PRIMO - [phone] * Verbal permission to speak to the caregivers and representatives has been obtained from the patient. Yes * Community resources currently utilized None * Additional services required to return to the preadmission environment? No * Can the patient safely return to the preadmission environment? Yes * Has this patient been hospitalized within the prior 30 days at any hospital? No External Providers External Provider: LADONNAAdore Next Contact Date: Service Request Date: Service Type: Resolution: Reviewer: Comments: Coverage Notice Reviewer: [email or web address] Anmol Luna Notice Issued Date-Time: 11/29/2019 21:27 Notice Type: IM Discharge Notice Notice Delivered To: Patient Relationship to Patient: Self Human Factors Advisor Lead Name: Delivery Method: HAND - Hand Delivered Maya Days: Prior Verbal Notification: Recipient Understood Notice: Yes Recipient Signature: Yes Med Rec Note Co-signed by Attending: Coverage Notice Comment: Reviewer: [email or web address] Luna Notice Issued Date-Time: 11/29/2019 16:10 Notice Type: Patient Choice Letter Notice Delivered To: Patient Relationship to Patient: Self Human Factors Advisor Lead Name: Delivery Method: HAND - Hand Delivered Maya Days: Prior Verbal Notification: Recipient Understood Notice: Recipient Signature: Yes Med Rec Note Co-signed by Attending: Coverage Notice Comment: AGUILAR Patient Name: TORY ELIZABETH Page [id number] at 2136 All edits/amendments must be made on the electronic document DICTATION DATE: 11/30/192134 TECHNICAL SUPPORT TECHNICIAN: YUE 11/30/192134 RPT#: [id number] DC DATE:11/29/19 STATUS: DIS IN [facility] [address] [place] [address] END OF REPORT
== END 2019-11-29 17:57 | disposition home or self-care (01) | DRG 417 ==
LOC: D.ER 01:40 → D.M2 03:43 → D.MS 03:43 → D.M2 11-27 14:53
PROVIDERS: Family Medicine; Internal Medicine Interventional Cardiology; ADMIT Family Medicine; ATTEND Family Medicine
PROC: B2151ZZ Fluoroscopy of Left Heart using Low Osmolar Contrast (ICD-10-PCS; 2019-11-27)
PROC: 4A023N7 Measurement of Cardiac Sampling and Pressure, Left Heart, Percutaneous Approach (ICD-10-PCS; 2019-11-27)
PROC: B2111ZZ Fluoroscopy of Multiple Coronary Arteries using Low Osmolar Contrast (ICD-10-PCS; principal; 2019-11-27 14:40)
PROC: 0FT44ZZ Resection of Gallbladder, Percutaneous Endoscopic Approach (ICD-10-PCS; 2019-11-28)
DX: K81.9 Cholecystitis, unspecified (principal); I21.A1 Myocardial infarction type 2; E87.1 Hypo-osmolality and hyponatremia; I50.30 Unspecified diastolic (congestive) heart failure; Z68.41 Body mass index [BMI] 40.0-44.9, adult; I11.0 Hypertensive heart disease with heart failure; E66.01 Morbid (severe) obesity due to excess calories; I48.0 Paroxysmal atrial fibrillation; E03.9 Hypothyroidism, unspecified

== ENCOUNTER 2020-09-21 11:39 | Day surgery (SDC) | payer MEDICARE ==
[~2020-09-21] VITALS: Ht 157.5 cm; Wt 99.6 kg
--- NOTE | ~2020-09-21 | HEMODYNAMI ---
PATIENT:TORY ELIZABETH MEDICAL RECORD: [id number] : 53 LOCATION:[facility] ADMISSION DATE: 09/21/20 Generatedon:114:26 Patient name: TORY ELIZABETH Patient #: [id number] SSN: [id number] : 1955 Date of study: 09/21/2020 Page: Of Hemodynamic Procedure Report Patient Data Patient Demographics Procedure consent was obtained First Name: TORY Gender: Female Last Name: CLARA : 1955 Middle Initial: YAMILEX Age: 65 year(s) Patient #: [id number] Race: SSN: [id number] Additional ID: [id number] Contact details Address: [address] [place] [address] State: [place] City: [place] Zip code: [address] Past Medical History Allergies: No known allergies Admission Admission Data Admission Date: 09/21/2020 Admission Time: 11:39 Arrival Date: 09/21/2020 Arrival Time: 14:00 Admit Source: Other Insurance Payor: Medicare [facility] #: [id number] Height (in.): 53 BSA: 1.87 (m2) Height (cm.): 134.62 BMI: 62.07 (kg/m2) Weight (lbs.): 248 Weight (kg.): 112.49 Lab Results Lab Result Date: 09/21/2020 Lab Result Time: 0:00 Biochemistry Name Units Result Min Max BUN mg/dl 13 --(--*-)-- 7 18 Creatinine mg/dl 0.8 --(-*--)-- 0.6 1.3 eGFR ml/min 76.14407 *-(----)-- 90 120 NONAFRICAN CBC Name Units Result Min Max Hemoglobin g/dl 11.5 *-(----)-- 13.5 17.5 Procedure Procedure Types Cath Procedure Diagnostic Procedure Cardioversion External Procedure Description Procedure Date Procedure Date: 09/21/2020 Procedure Start Time: 14:16 Procedure End Time: 14:22 Procedure Staff Name Function Asher Llamas MD Performing Physician Aleyda Camarillo RT Monitor Jessie Tim RT Scrub Dayton Suggs RN Nurse Jayesh Stein MD Additional personnel Procedure Data Cath Procedure Estimated blood loss: 0 ml Procedure Complications No complications Procedure Medications Medication Administration Route Dosage Oxygen etCO2 Nasal cannula 2 l/min Refer to Anesthesia Notes for Sedation Medications Hemodynamics Rest BSA: 1.87 (m2) HGB: 11.5 (g/dl) O2 Consumption: Estimated: 207.1 (ml/min) O2 Consumption indexed: Estimated:110.75 (ml/min/m) Heart Rate: 117 (bpm) Snapshots Pre Cath Intra NCS Post Cath Vital Signs Time Heart Resp SPO2 etCO2 NIBP (mmHg) Rhythm Pain Sedation Rate (ipm) (%) (mmHg) Status Level (bpm) 14:11:51 87 14 96 31.5 Measuring A-Fib 0 (11) 10(A) , No pain 14:12:44 96 21 96 30.7 179/101(116) A-Fib 0 (11) 10(A) , No pain 14:17:37 94 20 96 25.5 193/114(158) A-Fib 0 (11) 9(A) , No pain 14:22:28 56 19 90 20.2 139/68(124) NSR 0 (11) 9(A) , No pain 14:23:54 57 21 94 11.2 131/68(95) NSR 0 (11) 10(A) , No pain Medications Time Medication Route Dose Verified Delivered Reason Notes Effective ness by by 14:09:42 Oxygen etCO2 2 Asher Burris used for Nasal l/min St Omar Suggs RN procedure cannula 14:09:46 Refer to Asher Burris Anesthesia St Omar Suggs RN Notes for Sedation Medications Procedure Log Time Note 13:49:09 Diagnostic Cath Status : Elective 13:49:25 Aleyda Camarillo RT(R) sent for patient. Start room use. 13:49:26 Time tracking: Regular hours (M-F 7:00 - 5:00) 13:49:32 Plan of Care:Hemodynamics will remain stable., Cardiac rhythm will remain stable., Comfort level will be maintained., Respiratory function will remain adequate., Patient/ family verbilizes understanding of procedure., Procedure tolerated without complication., Recovers from procedure without complications.. 13:55:27 Informed consent obtained and on chart 13:57:48 Arrival Date: 09/21/2020 2:00:00 PM 13:58:20 Admit Source: Other 13:58:23 Insurance Payor : Medicare 13:58:35 Patient Height : 53 inches 13:58:40 Patient Weight : 248 lbs 14:00:19 Lab Result : Hemoglobin 11.5 g/dl 14:00:19 Lab Result : eGFR NONAFRICAN 76.23085 ml/min 14:00:19 Lab Result : BUN 13 mg/dl 14:00:19 Lab Result : Creatinine 0.8 mg/dl 14:05:19 Patient received from Pre/Post Procedure Room to CCL 1 Alert and oriented. Tansferred to table in Supine position. 14:05:20 Warm blankets applied, and abdullahi hugger turned on for patient comfort. 14:05:21 Correct patient and procedure confirmed by team. 14:05:22 ECG and BP/O2 sat monitors applied to patient. 14:06:01 Vital chart was started 14:06:03 Baseline sample Acquired. 14:06:18 Baseline sample Acquired. 14:06:20 Baseline sample Acquired. 14:06:28 Rhythm: atrial fibrillation 14:06:30 Full Disclosure recording started 14:06:34 H&P Date Dictated: 09/21/2020 Within 30 days and on chart., H&P Addendum completed by physician on day of procedure. (MUST COMPLETE FOR ALL OUTPATIENTS). 14:06:36 Pre-procedure instructions explained to patient. 14:06:36 Pre-op teaching completed and patient verbalized understanding. 14:06:38 Family in patients room. 14:06:39 Patient NPO since Midnight. 14:06:42 Is the patient allergic to Iodine/contrast media? No. 14:06:43 Was the patient premedicated? No 14:06:45 Is patient on blood thinner?Yes 14:06:49 ACC The patient was administered the following blood thiners within the last 24 hours: Eliquis 14:06:56 Patient diabetic? Yes. 14:06:58 If diabetic: On Metformin? No 14:07:01 Previous problem with sedation/anesthesia? No ? 14:07:29 Snore? Yes 14:07:33 Sleep apnea? Yes 14:07:35 Deviated septum? No 14:07:36 Opens mouth fully? Yes 14:07:37 Sticks out tongue? Yes 14:07:43 Airway obstruction? No ? 14:07:48 Dentures? Yes out 14:07:59 IV patent on arrival in left forearm with 0.9% NaCl at [facility]. 14:08:02 Lab results completed and on chart. 14:08:09 Alarms reviewed by R. N. 14:08:10 Sharps counted by scrub and verified by R.N. 14:08:29 Jayesh Stein MD present and monitoring patient for TIVA. 14:08:35 Physician arrived 14:08:35 --------ALL STOP TIME OUT------ 14:08:36 Final Timeout: patient, procedure, and site verified with staff and physician. All members of the team are in agreement. 14:08:45 Fire Safety Assessment: E--There are other possible contributors. 14:08:50 Physical assessment completed. ASA score P 2 - A patient with mild systemic disease as per Asher Llamas MD. 14:08:53 Sedation plan: TIVA Medication:Propofol 14:09:42 Oxygen 2 l/min etCO2 Nasal cannula was administered by Dayton Suggs RN; used for procedure; Verbal order read back and verified. 14:09:46 Refer to Anesthesia Notes for Sedation Medications was administered by Dayton Suggs RN; ; Verbal order read back and verified. 14:11:41 Quick combo pads placed on patients chest and back. 14:12:17 Defibrillator synced and charged to 200 Joules. 14:13:43 Baseline sample Acquired. 14:16:18 Procedure started. 14:18:55 Shock delivered. 14:19:19 Patient cardioverted to sinus rhythm . 14:21:17 Procedure ended.(Physican Out) 14:21:29 Sharps counted by scrub and verified by R.N. 14:21:34 Post procedure rhythm: sinus rhythm 14:21:37 Estimated blood loss: 0 ml 14:21:39 Post procedure instruction explained to patient.Patient verbalizes understanding. 14:21:40 Patient needs reinforcement of post procedure teaching. 14:21:47 Procedure and supply charges have been captured, reviewed, submitted and are correct. 14:21:53 Procedure Complication : No complications 14:21:55 Vital chart was stopped 14:22:00 Operative report dictated upon procedure completion. 14:22:01 See physician's report for complete and final results. 14:22:02 Report given to Pre/Post Procedure Room. 14:22:04 Patient transfered to Pre/Post Procedure Room with Stretcher. 14:22:06 Procedure ended. 14:22:06 Full Disclosure recording stopped 14:22:11 End room use (Document Last) 14:22:30 Quick Combo opened to sterile field. Device Usage Item Manufacture Quantity Catalog Hospital Part Current Minimal Lot# / Name Number Charge Number Stock Stock Seri al# Code irisnote 1 [id number] Combo Signature Audit [place] Stage Time Signature Unsigned Intra-Procedure 09/21/2020 Jessie Tim 2:23:02 PM RT(R) Intra-Procedure 09/21/2020 Dayton Suggs RN 2:23:23 PM Intra-Procedure 09/21/2020 Asher Le 2:26:35 PM Omar [id number] [place] [address]
--- NOTE | ~2020-09-21 | OP ---
PATIENT NAME: RIRI ELIZABETH MEDICAL RECORD: [id number] :53 LOCATION:[facility] ADMISSION DATE: SURGEON: BRADLEY ZEE MD DATE OF OPERATION: 09/21/2020 CARDIOVERSION NOTE DESCRIPTION OF PROCEDURE: Under general sedation via TIVA via anesthesia, a single synchronized shock was successful in restoring atrial fibrillation to normal sinus rhythm. IMPRESSION: Successful cardioversion on Riri Elizabeth. During the procedure, the patient was monitored continuously with pulse oximetry, telemetry, and noninvasive blood pressure monitoring. 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
[~2020-09-21 11:39] MED LIST changes: -BETAPACE 80 MG80 MG; +BETAPACE 80 MG80 MG PO; +HYDROCODON-ACE1 EAC7 PO; +MAG-OX 400 MG400 MG PO; +VITAMIN D325 MC1 PO; -VITAMIN D5000 UNIT PO
[2020-09-21] MEDS ORDERED: BETAPACE160 MG PO (12:17)
[2020-09-21] MEDS ORDERED: SYNTHROID100 MCG PO (12:18)
[2020-09-21] MEDS ORDERED: ELIQUIS5 MG PO (12:18)
[2020-09-21] MEDS ORDERED: METOPROLOL TART25 MG PO (12:18)
[2020-09-21 12:43] VITALS: BP 173/107; Ht 157.5 cm; Wt 99.6 kg
[2020-09-21 12:56] LABS: BASOPHILS 1.4 % (0-2); EOSINOPHILS 2.5 % (0-7); HEMATOCRIT 36.1 % (36.0-48.0); HEMOGLOBIN 11.5 g/dL (12-16); IMMATURE GRANULOCYTES 0.1 % (0-5); LYMPHOCYTE ABS# 1.77 10x3/uL (1.18-3.74); LYMPHOCYTES 20.8 % (15-50); MCH 28.4 pg (26.0-34.0); MCHC 31.9 g/dL (31.0-37.0); MCV 89.1 fL (80.0-100.0); MEAN PLATELET VOLUME 9.5 fL (7.4-10.4); MONOCYTES 5.3 % (2-11); NEUTROPHIL ABS# 5.97 10x3/uL (1.56-6.13); NEUTROPHILS 69.9 % (40-80); RBC 4.05 10x6/uL (4.00-5.40); RDW 14.5 % (11.5-14.5); WBC 8.5 10x3/uL (4.8-10.8)
[2020-09-21 13:08] LABS: PLATELET COUNT 341 10x3/uL (130-400)
[2020-09-21 13:24] LABS: CALC OSMOLALITY 274 mosm/kg (275-300); CARBON DIOXIDE 25.2 mmol/L (21.0-32.0); CHLORIDE - SERUM 102 mmol/L (98-107); CREATININE - SERUM 0.8 mg/dL (0.6-1.3); GLUCOSE 119 mg/dL (74-106); POTASSIUM - SERUM 4.1 mmol/L (3.5-5.1); SODIUM 137 mmol/L (136-145); UREA NITROGEN 13 mg/dL (7-18); eGFR NON AFRICAN AMERICAN 76 mL/min (90-120)
[2020-09-21 13:48] LABS: INR 1.63 (0.85-1.17); PROTIME 17.9 SECONDS (11.6-15.0)
--- NOTE | 2020-09-21 14:31 | NUR ---
PT REC'D TO HEAD PUMPER RECOVERY ROOM 9 VIA STRETCHER. MONITORS ESTAB. FRIEND AT BS. SEE COMPOUND WORKER FLOWSHEETS. ALARMS ON AND C/L IN REACH.
--- NOTE | 2020-09-21 14:40 | NUR ---
DR. ZEE AT BS, UPDATE GIVEN AND QUESTIONS ANSWERED.
--- NOTE | 2020-09-21 14:45 | NUR ---
CM - SB, NO ECTOPY NOTED. VSS. PT DENIES NEEDS. ALARMS ON AND C/L IN REACH.
--- NOTE | 2020-09-21 15:15 | NUR ---
CM - SB, NO ECTOPY. PIV D/C'D INTACT, DSG APPLIED. PT UP TO GET DRESSED WITH ASSIST, THEN TO BR INDEPENDENTLY.
--- NOTE | 2020-09-21 15:20 | NUR ---
ALL DISCHARGE INSTRUCTIONS REVIEWED WITH PT, INCLUDING RESTRICTIONS, MEDS, AND F/U APPT. PT VERBALIZES UNDERSTANDING.
--- NOTE | 2020-09-21 15:28 | NUR ---
PT D/C'D VIA WC TO PRIVATE VEHICLE WITH ALL BELONGNINGS AND PAPERWORK.
== END 2020-09-21 15:28 | disposition home or self-care (01) ==
LOC: D.CATH 11:39
PROVIDERS: ATTEND Internal Medicine Interventional Cardiology
DX: R06.00 Dyspnea, unspecified (principal); I48.0 Paroxysmal atrial fibrillation; I10 Essential (primary) hypertension; E78.5 Hyperlipidemia, unspecified; I25.10 Atherosclerotic heart disease of native coronary artery without angina pectoris